=== PATIENT | female | born 1995 | race Two or more races ===

== ENCOUNTER 2016-09-04 14:47 | Emergency (ER) | payer MEDICAID, OTHER ==
[~2016-09-04] VITALS: Ht 160 cm; Wt 57.2 kg
[2016-09-04 15:51] LABS: Basophils # (auto) 0 uL; Basophils % (auto) 0.5 % (0.0-2.0); Eosinophils # (auto) 0.1 uL; Eosinophils % (auto) 1.2 % (0.0-7.0); Hematocrit 36.4 % (36.0-46.0); Hemoglobin 11.8 g/dL (12.2-16.2); Lymphocytes # (auto) 1.4 uL; Mean Corpuscular Hemoglobin 28.2 pg (28.0-32.0); Mean Corpuscular Hgb Conc. 32.4 g/dL (32.0-36.0); Mean Corpuscular Volume 87.1 fL (80.0-100.0); Mean Platelet Volume 7.9 fL (7.4-10.4); Monocytes # (auto) 0.4 uL; Monocytes % (auto) 4.1 % (0.0-12.0); Neutrophils # (auto) 7.1 uL; Neutrophils % (auto) 78.2 % (37.0-80.0); Platelet Count (auto) 313 10^3/uL (140-450); Red Cell Distribution Width 13.5 % (11.6-16.0)
[2016-09-04 15:54] LABS: BUN/Creatinine Ratio 14.9; Bilirubin, Total 0.2 mg/dL (0.2-1.0); Calcium 8.5 mg/dL (8.5-10.1); Potassium 3.7 mmol/L (3.5-5.1)
[2016-09-04 16:54] VITALS: BP 101/66
== END 2016-09-04 20:50 | disposition home or self-care (01) ==
LOC: ER 14:52
DX: O20.0 Threatened abortion (principal); Z3A.17 17 weeks gestation of pregnancy
CPT/HCPCS: 36415; 76801; 80053; 84702; 85025

== ENCOUNTER 2016-09-07 17:43 | Emergency (ER) | payer SELFPAY ==
[~2016-09-07] VITALS: Ht 157.5 cm; Wt 57.2 kg
[2016-09-07 18:28] LABS: Basophils # (auto) 0 uL; Basophils % (auto) 0.3 % (0.0-2.0); Eosinophils # (auto) 0.2 uL; Eosinophils % (auto) 2.7 % (0.0-7.0); Hematocrit 34.5 % (36.0-46.0); Hemoglobin 11.1 g/dL (12.2-16.2); Lymphocytes % (auto) 22.4 % (10.0-50.0); Mean Corpuscular Hemoglobin 28.1 pg (28.0-32.0); Mean Corpuscular Hgb Conc. 32.2 g/dL (32.0-36.0); Mean Corpuscular Volume 87.4 fL (80.0-100.0); Mean Platelet Volume 7.7 fL (7.4-10.4); Monocytes # (auto) 0.5 uL; Monocytes % (auto) 5.9 % (0.0-12.0); Neutrophils % (auto) 68.7 % (37.0-80.0); Platelet Count (auto) 306 10^3/uL (140-450); Red Cell Distribution Width 13.6 % (11.6-16.0); White Blood Cell 8.8 10^3/uL (4.4-10.8)
[2016-09-07 18:49] LABS: BUN/Creatinine Ratio 11.5; Calcium 8.6 mg/dL (8.5-10.1); Potassium 3.8 mmol/L (3.5-5.1)
[2016-09-07 20:53] VITALS: BP 107/70
== END 2016-09-07 21:12 | disposition home or self-care (01) ==
LOC: EDBD 17:43 → ER 17:48
DX: R55 Syncope and collapse (principal); O26.892 Other specified pregnancy related conditions, second trimester; Z3A.18 18 weeks gestation of pregnancy
CPT/HCPCS: 36415; 76805; 80048; 84702; 85025

== ENCOUNTER 2017-01-02 14:00 | Observation (INO) | payer MEDICAID ==
[2017-01-02] MEDS ORDERED: PREN-153 OR (14:48)
[2017-01-02 15:38] LABS: Basophils # (auto) 0 uL; Basophils % (auto) 0.3 % (0.0-2.0); Eosinophils # (auto) 0.5 uL; Eosinophils % (auto) 4.4 % (0.0-7.0); Hematocrit 32.4 % (36.0-46.0); Hemoglobin 10.9 g/dL (12.2-16.2); Lymphocytes # (auto) 1.6 uL; Lymphocytes % (auto) 14.9 % (10.0-50.0); Mean Corpuscular Hemoglobin 28.6 pg (28.0-32.0); Mean Corpuscular Hgb Conc. 33.5 g/dL (32.0-36.0); Mean Corpuscular Volume 85.3 fL (80.0-100.0); Mean Platelet Volume 8.2 fL (7.4-10.4); Monocytes # (auto) 0.6 uL; Monocytes % (auto) 5.8 % (0.0-12.0); Neutrophils % (auto) 74.6 % (37.0-80.0); Platelet Count (auto) 273 10^3/uL (140-450); White Blood Cell 10.7 10^3/uL (4.4-10.8)
[2017-01-02 16:20] LABS: Albumin 2.4 g/dL (3.4-5.0); BUN/Creatinine Ratio 11.4; Bilirubin, Total 0.3 mg/dL (0.2-1.0); Calcium 8.1 mg/dL (8.5-10.1); Potassium 3.3 mmol/L (3.5-5.1); Total Protein 5.9 g/dL (6.4-8.2); Uric Acid 2.7 mg/dL (2.6-6.0)
== END 2017-01-02 15:35 | disposition home or self-care (01) | DRG 566 ==
LOC: LDRP 14:00
PROVIDERS: ADMIT Specialist; ATTEND Specialist
DX: O26.613 Liver and biliary tract disorders in pregnancy, third trimester (principal); K83.1 Obstruction of bile duct; Z3A.34 34 weeks gestation of pregnancy
CPT/HCPCS: 36415; 59025; 76818; 80053; 81002; 84550; 85025; 86592; G0378

== ENCOUNTER 2017-01-06 19:05 | Observation (INO) | payer MEDICAID ==
[~2017-01-06 19:05] MED LIST: PREN-153 OR
== END 2017-01-06 20:52 | disposition home or self-care (01) | DRG 566 ==
LOC: LDRP 19:05
PROVIDERS: ADMIT Specialist; ATTEND Specialist
DX: O26.893 Other specified pregnancy related conditions, third trimester (principal); Z3A.34 34 weeks gestation of pregnancy
CPT/HCPCS: 59025; 76818; 81002; G0378

== ENCOUNTER 2017-01-09 19:17 | Observation (INO) | payer MEDICAID | END 2017-01-09 20:35 | disposition home or self-care (01) | DRG 955 | LOC: LDRP 19:17 | PROVIDERS: ADMIT Obstetrics & Gynecology; ATTEND Obstetrics & Gynecology | DX: O26.899 Other specified pregnancy related conditions, unspecified trimester (principal); Z3A.00 Weeks of gestation of pregnancy not specified | CPT/HCPCS: 59025; 76818; 81002; G0378 ==

== ENCOUNTER 2017-02-08 12:50 | Observation (INO) | payer MEDICAID | END 2017-02-08 16:05 | disposition home or self-care (01) | DRG 566 | LOC: LDRP 12:50 | PROVIDERS: ADMIT Specialist; ATTEND Specialist | DX: O62.9 Abnormality of forces of labor, unspecified (principal); Z3A.39 39 weeks gestation of pregnancy | CPT/HCPCS: 59025; 81002; G0378 ==

== ENCOUNTER 2017-02-08 19:15 | Inpatient (IN) | payer MEDICAID ==
[~2017-02-08] VITALS: Ht 157.5 cm; Wt 72.6 kg
[2017-02-08] MEDS ORDERED: NALBUPHINE HCL 10 MG/1ml INJECTION IV PRN (22:00)
[2017-02-08] MEDS ORDERED: LIDOCAINE 2%HCL (LOCAL ANESTH.) INJ 20ML MDV IJ ONE (22:00)
[2017-02-08] MEDS ORDERED: WITCH HAZEL-GLYCERIN PAD TOP PRN (22:00)
[2017-02-08] MEDS ORDERED: PHISODERM TOP SOLN 240ML BTL TOP PRN (22:00)
[2017-02-08] MEDS ORDERED: DERMOPLAST 60ML BOTTLE TOP PRN (22:00)
[2017-02-08 22:42] LABS: Basophils # (auto) 0 uL; Basophils % (auto) 0.3 % (0.0-2.0); CONDITION Y; Eosinophils # (auto) 0.1 uL; Eosinophils % (auto) 1.2 % (0.0-7.0); Hematocrit 34.4 % (36.0-46.0); Hemoglobin 11.4 g/dL (12.2-16.2); Lymphocytes # (auto) 1.8 uL; Lymphocytes % (auto) 16.6 % (10.0-50.0); Mean Corpuscular Hemoglobin 28.5 pg (28.0-32.0); Mean Corpuscular Hgb Conc. 33.1 g/dL (32.0-36.0); Mean Corpuscular Volume 86.1 fL (80.0-100.0); Mean Platelet Volume 8.3 fL (7.4-10.4); Monocytes # (auto) 0.8 uL; Monocytes % (auto) 7.2 % (0.0-12.0); Neutrophils # (auto) 8.3 uL; Neutrophils % (auto) 74.7 % (37.0-80.0); Platelet Count (auto) 277 10^3/uL (140-450); White Blood Cell 11.1 10^3/uL (4.4-10.8)
[2017-02-08 22:47] LABS: Urine Bilirubin Negative (Negative); Urine Blood Negative /uL (Negative); Urine Color Yellow (Yellow); Urine Glucose Normal (Normal); Urine Ketone Negative (Negative); Urine Nitrite Negative (Negative); Urine RBC <1 /hpf (0 - 4); Urine Squamous Epithelial Cell FEW /hpf (<5); Urine Urobilinogen Normal (Negative); Urine pH 6.5 (5.0-8.0)
[2017-02-08 22:55] LABS: INR 0.88 (0.9-1.15); Partial Thromboplastin Time 26.7 sec (22.64-33.71); Prothrombin Time 9.6 sec (9.37-12.3)
[2017-02-08 23:03] LABS: Albumin 2.4 g/dL (3.4-5.0); BUN/Creatinine Ratio 21.3; Calcium 7.9 mg/dL (8.5-10.1); Potassium 3.6 mmol/L (3.5-5.1)
[2017-02-08 23:06] LABS: Bilirubin, Total 0.2 mg/dL (0.2-1.0); Total Protein 6.3 g/dL (6.4-8.2)
[2017-02-08] MEDS ORDERED: NALOXONE HCL 0.4 MG/ML VIAL IV ONE (23:30)
[2017-02-08] MEDS ORDERED: fentaNYL W ROPIVACAINE 150 ML EPI SCH (23:30)
[2017-02-08] MEDS ORDERED: ePHEDrine SULFATE 50 MG/ML AMP IV ONE (23:30)
[2017-02-08] MEDS ORDERED: LIDOCAINE HCL 2 %PF INJ 10ML AMP IJ ONE (23:30)
[2017-02-08] MEDS ORDERED: fentaNYL CITRATE 100 MCG/2 ML VL IV ONE (23:30)
[2017-02-09] MEDS ORDERED: fentaNYL CITRATE 100 MCG/2 ML VL IV ONE (00:30)
[2017-02-09] MEDS ORDERED: ePHEDrine SULFATE 50 MG/ML AMP IV ONE (00:30)
[2017-02-09] MEDS ORDERED: fentaNYL W ROPIVACAINE 150 ML EPI SCH (00:30)
[2017-02-09] MEDS ORDERED: NALOXONE HCL 0.4 MG/ML VIAL IV ONE (00:30)
[2017-02-09] MEDS ORDERED: LACTATED RINGER'S 1,000 ML IV SCH (00:33)
[2017-02-09] MEDS ORDERED: LACT. RINGERS/OXYTOCIN 20UNITS 1,000 ML IV SCH ×2 (00:33→04:03)
[2017-02-09] MEDS ORDERED: TERBUTALINE SULFATE 1 MG/ML 1ML VIAL SC ONE (04:15)
[2017-02-09] MEDS ORDERED: IBUPROFEN 600 MG TAB PO PRN (10:00)
[2017-02-09 12:05] VITALS: BP 104/58
[2017-02-09] MEDS: DOCUSATE CALCIUM 240 MG CAP PO SCH (14:00)
[2017-02-09 16:00] VITALS: BP 105/65
[2017-02-09] MEDS: IBUPROFEN 600 MG TAB PO PRN ×2 (17:12→23:29)
[2017-02-09 19:37] VITALS: BP 104/59
[2017-02-09 23:19] VITALS: BP 109/62
[2017-02-10 03:25] VITALS: BP 102/59
[2017-02-10] MEDS: IBUPROFEN 600 MG TAB PO PRN ×2 (03:32→16:08)
[2017-02-10 06:45] LABS: Basophils # (auto) 0 uL; Basophils % (auto) 0.3 % (0.0-2.0); CONDITION Y; DEFINITIVE SEE PRINTOUT; Eosinophils # (auto) 0.3 uL; Eosinophils % (auto) 2.1 % (0.0-7.0); Hematocrit 24.6 % (36.0-46.0); Hemoglobin 8.3 g/dL (12.2-16.2); Lymphocytes # (auto) 2.8 uL; Mean Corpuscular Hemoglobin 29.5 pg (28.0-32.0); Mean Corpuscular Hgb Conc. 33.7 g/dL (32.0-36.0); Mean Corpuscular Volume 87.6 fL (80.0-100.0); Mean Platelet Volume 8.5 fL (7.4-10.4); Monocytes # (auto) 0.8 uL; Neutrophils # (auto) 9.5 uL; Neutrophils % (auto) 70.6 % (37.0-80.0); Platelet Count (auto) 213 10^3/uL (140-450); Red Cell Distribution Width 15.2 % (11.6-16.0); White Blood Cell 13.4 10^3/uL (4.4-10.8)
[2017-02-10 07:31] VITALS: BP 109/57
[2017-02-10] MEDS: DOCUSATE CALCIUM 240 MG CAP PO SCH (10:07)
[2017-02-10 11:30] VITALS: BP 112/62
[2017-02-10 16:27] VITALS: BP 110/62
== END 2017-02-10 17:05 | disposition home or self-care (01) | DRG 560 ==
LOC: LDRP 19:15 → OBSVTOIN 20:00 → LDRP 22:09
PROVIDERS: ADMIT Specialist; ATTEND Specialist
PROC: 10E0XZZ Delivery of Products of Conception, External Approach (ICD-10-PCS; principal; 2017-02-09)
PROC: 3E0R3CZ (ICD-10-PCS; 2017-02-09)
PROC: 00HU33Z Insertion of Infusion Device into Spinal Canal, Percutaneous Approach (ICD-10-PCS; 2017-02-09)
DX: O80 Encounter for full-term uncomplicated delivery (principal); Z37.0 Single live birth; Z3A.39 39 weeks gestation of pregnancy
CPT/HCPCS: 36415; 51702; 59025; 59409; 62282; 80053; 81001; 81002; 85025; 85610; 85730; 86850; 86900; 86901; 88307; 94762; 96361; 96365; 96366; G0378; J2590; J3010

== ENCOUNTER 2017-03-17 18:28 | Emergency (ER) | payer MEDICAID ==
[~2017-03-17] VITALS: Ht 157.5 cm; Wt 68.0 kg
[2017-03-17 18:35] VITALS: BP 100/60
== END 2017-03-17 21:47 | disposition left against medical advice (07) ==
LOC: EDUNIT# 18:40 → ER 18:40
DX: L02.414 Cutaneous abscess of left upper limb (principal); Z53.21 Procedure and treatment not carried out due to patient leaving prior to being seen by health care provider

== ENCOUNTER 2017-10-17 03:20 | Emergency (ER) | payer MEDICAID ==
[~2017-10-17] VITALS: Ht 167.6 cm; Wt 68.0 kg
[2017-10-17 03:28] VITALS: BP 108/65
[2017-10-17 04:11] LABS: Basophils # (auto) 0.1 uL; Basophils % (auto) 0.7 % (0.0-2.0); Eosinophils # (auto) 0.2 uL; Eosinophils % (auto) 1.5 % (0.0-7.0); Hematocrit 39.2 % (36.0-46.0); Hemoglobin 12.5 g/dL (12.2-16.2); Lymphocytes # (auto) 2.4 uL; Lymphocytes % (auto) 22.2 % (10.0-50.0); Mean Corpuscular Hemoglobin 27.7 pg (28.0-32.0); Mean Corpuscular Hgb Conc. 31.9 g/dL (32.0-36.0); Mean Corpuscular Volume 86.7 fL (80.0-100.0); Monocytes # (auto) 0.5 uL; Monocytes % (auto) 4.3 % (0.0-12.0); Neutrophils # (auto) 7.6 uL; Neutrophils % (auto) 71.3 % (37.0-80.0); Platelet Count (auto) 315 10^3/uL (140-450); Red Blood Cells 4.52 10^6/uL (4.0-5.20); Red Cell Distribution Width 14.1 % (11.8-14.3); White Blood Cell 10.7 10^3/uL (4.4-10.8)
[2017-10-17 04:26] LABS: Albumin 3.5 g/dL (3.4-5.0); BUN/Creatinine Ratio 9.5; Calcium 7.8 mg/dL (8.5-10.1); Potassium 3.3 mmol/L (3.5-5.1)
[2017-10-17 04:28] LABS: Acetaminophen < 2.0 ug/mL (10-30); Salicylate < 1.7 mg/dL (2.8-20.0)
[2017-10-17 04:29] LABS: Bilirubin, Total 0.1 mg/dL (0.2-1.0); Total Protein 7.2 g/dL (6.4-8.2)
== END 2017-10-17 05:18 | disposition left against medical advice (07) ==
LOC: EDBD 03:20 → ER 03:20 → EDUNIT# 03:20 → ER 05:18
DX: F10.10 Alcohol abuse, uncomplicated (principal); Z53.21 Procedure and treatment not carried out due to patient leaving prior to being seen by health care provider
CPT/HCPCS: 36415; 80053; 80320; 80329; 85025

== ENCOUNTER 2019-05-26 18:44 | Emergency (ER) | payer MEDICAID ==
[~2019-05-26] VITALS: Ht 157.5 cm; Wt 63.5 kg
[2019-05-26 19:22] LABS: Urine Amorphous Crystal FEW /hpf (None Seen); Urine Bacteria NONE SEEN /hpf (None Seen); Urine Blood Negative /uL (Negative); Urine Mucus FEW (None Seen); Urine Specific Gravity 1.019 (1.001-1.035); Urine WBC 2 /hpf (0 - 5)
[2019-05-26 19:22] LABS: Basophils # (auto) 0.1 uL; Basophils % (auto) 1.1 % (0.0-2.0); Eosinophils # (auto) 0.6 uL; Hematocrit 38.3 % (36.0-46.0); Hemoglobin 13.2 g/dL (12.2-16.2); Lymphocytes # (auto) 3.2 uL; Lymphocytes % (auto) 34.2 % (10.0-50.0); Mean Corpuscular Hemoglobin 29.8 pg (28.0-32.0); Mean Corpuscular Hgb Conc. 34.4 g/dL (32.0-36.0); Mean Corpuscular Volume 86.4 fL (80.0-100.0); Monocytes # (auto) 0.6 uL; Monocytes % (auto) 6.4 % (0.0-12.0); Neutrophils # (auto) 4.9 uL; Neutrophils % (auto) 52.3 % (37.0-80.0); Nucleated Red Blood Cells % 0.2 %; Platelet Count (auto) 363 10^3/uL (140-450); Red Blood Cells 4.43 10^6/uL (4.0-5.20); Red Cell Distribution Width 12.4 % (11.8-14.3); White Blood Cell 9.3 10^3/uL (4.4-10.8)
[2019-05-26 19:25] LABS: BUN/Creatinine Ratio 16.5; Calcium 8.6 mg/dL (8.5-10.1); Potassium 3.3 mmol/L (3.5-5.1)
[2019-05-26 19:34] LABS: Bilirubin, Total 0.1 mg/dL (0.2-1.0); Total Protein 7.7 g/dL (6.4-8.2)
[2019-05-26 19:36] LABS: Alcohol, Urine < 3.0 mg/dL (0-5); Amphetamine Screen, Urine NEGATIVE (NEGATIVE); Barbiturate Scree,Urine NEGATIVE (NEGATIVE); Benzodiazephine Screen, Urine NEGATIVE (NEGATIVE); Cannabinoid Screen, Urine POSITIVE (NEGATIVE); Cocaine Screen, Urine NEGATIVE (NEGATIVE); Phencyclidine Screen, Urine NEGATIVE (NEGATIVE)
[2019-05-26 19:44] LABS: Opiate Scree,Urine NEGATIVE (NEGATIVE)
[2019-05-26 22:06] VITALS: BP 122/78
[2019-05-26] MEDS ORDERED: POTASSIUM CHL 20 Meq TABLET PO ONE (22:15)
[2019-05-26] MEDS ORDERED: ACETAMINOPHEN/CODEINE#3 (300/30mg) TAB PO ONE (22:15)
[2019-05-26] MEDS ORDERED: DexAMETHasone SOD PHOS 10MG/1ML VIAL INJ IM ONE (22:15)
[2019-05-26] MEDS ORDERED: ONDANSETRON ODT 4 MG TAB PO ONE (23:15)
== END 2019-05-26 23:03 | disposition home or self-care (01) ==
LOC: ER 18:47
DX: R42 Dizziness and giddiness (principal); H65.93 Unspecified nonsuppurative otitis media, bilateral
CPT/HCPCS: 36415; 70450; 80053; 80307; 81001; 81025; 85025; 96372; 99284; J1100; Q0162

== ENCOUNTER 2020-12-28 14:00 | Observation (INO) | payer MEDICAID ==
[~2020-12-28 14:00] MED LIST changes: -PREN-153 OR; +PREN1TAB71 OR
== END 2020-12-28 17:05 | disposition home or self-care (01) ==
LOC: LDRP 14:00
PROVIDERS: ADMIT Obstetrics & Gynecology; ATTEND Obstetrics & Gynecology
DX: O26.892 Other specified pregnancy related conditions, second trimester (principal); R10.30 Lower abdominal pain, unspecified; Z3A.22 22 weeks gestation of pregnancy
CPT/HCPCS: 59025; 81002; G0378

== ENCOUNTER → 2021-02-19 | Outpatient (CLI) | payer MEDICAID ==
[2021-02-19 07:45] LABS: Basophils # (auto) 0.1 10 ^3/uL (0-0.2); Basophils % (auto) 0.6 % (0.0-2.0); Eosinophils # (auto) 0.2 10 ^3/uL (0-0.8); Eosinophils % (auto) 1.9 % (0.0-7.0); Hematocrit 33.9 % (36.0-46.0); Hemoglobin 11.8 g/dL (12.2-16.2); Lymphocytes # (auto) 2.3 10 ^3/uL (0.4-5.4); Lymphocytes % (auto) 22.6 % (10.0-50.0); Mean Corpuscular Hemoglobin 30.1 pg (28.0-32.0); Mean Corpuscular Hgb Conc. 34.9 g/dL (32.0-36.0); Mean Corpuscular Volume 86.4 fL (80.0-100.0); Monocytes # (auto) 0.7 10 ^3/uL (0-1.3); Monocytes % (auto) 6.6 % (0.0-12.0); Neutrophils # (auto) 7.1 10 ^3/uL (1.6-8.6); Neutrophils % (auto) 68.3 % (37.0-80.0); Nucleated Red Blood Cells % 0.1 %; Red Blood Cells 3.92 10^6/uL (4.0-5.20); Red Cell Distribution Width 13.2 % (11.8-14.3); White Blood Cell 10.4 10^3/uL (4.4-10.8)
== END | disposition home or self-care (01) ==
LOC: LAB 07:26
PROVIDERS: ATTEND Obstetrics & Gynecology
DX: O99.810 Abnormal glucose complicating pregnancy (principal); Z3A.29 29 weeks gestation of pregnancy
CPT/HCPCS: 36415; 82951; 85025

== ENCOUNTER 2021-03-16 17:55 | Emergency (ER) | payer MEDICAID ==
[~2021-03-16] VITALS: Ht 157.5 cm; Wt 64.0 kg
[2021-03-16 21:58] VITALS: BP 110/70
== END 2021-03-16 22:08 | disposition home or self-care (01) ==
LOC: ER 17:55
DX: O26.893 Other specified pregnancy related conditions, third trimester (principal); S93.602A Unspecified sprain of left foot, initial encounter; Z79.899 Other long term (current) drug therapy; Z3A.33 33 weeks gestation of pregnancy
CPT/HCPCS: 73610

== ENCOUNTER → 2021-04-16 | Outpatient (CLI) | payer MEDICAID ==
[2021-04-16 14:03] LABS: Basophils # (auto) 0.1 10 ^3/uL (0-0.2); Basophils % (auto) 0.7 % (0.0-2.0); Eosinophils # (auto) 0.1 10 ^3/uL (0-0.8); Eosinophils % (auto) 1.2 % (0.0-7.0); Hematocrit 37.3 % (36.0-46.0); Hemoglobin 12.3 g/dL (12.2-16.2); Lymphocytes # (auto) 1.6 10 ^3/uL (0.4-5.4); Lymphocytes % (auto) 16.6 % (10.0-50.0); Mean Corpuscular Hemoglobin 28.4 pg (28.0-32.0); Mean Corpuscular Hgb Conc. 33.1 g/dL (32.0-36.0); Mean Corpuscular Volume 85.8 fL (80.0-100.0); Monocytes # (auto) 0.6 10 ^3/uL (0-1.3); Monocytes % (auto) 6.9 % (0.0-12.0); Neutrophils % (auto) 74.6 % (37.0-80.0); Red Blood Cells 4.34 10^6/uL (4.0-5.20); Red Cell Distribution Width 14.7 % (11.8-14.3); White Blood Cell 9.4 10^3/uL (4.4-10.8)
[2021-04-17 06:06] LABS: RPR Non Reactive (Non Reactive)
== END | disposition home or self-care (01) ==
LOC: LAB 13:51
PROVIDERS: ATTEND Obstetrics & Gynecology
DX: Z34.83 Encounter for supervision of other normal pregnancy, third trimester (principal); Z3A.37 37 weeks gestation of pregnancy
CPT/HCPCS: 36415; 84112; 85025; 86592

== ENCOUNTER 2021-04-30 10:56 | Observation (INO) | payer MEDICAID | END 2021-04-30 12:18 | disposition home or self-care (01) | LOC: LDRP 10:56 | PROVIDERS: ADMIT Obstetrics & Gynecology; ATTEND Obstetrics & Gynecology | DX: O62.9 Abnormality of forces of labor, unspecified (principal); O99.891 Other specified diseases and conditions complicating pregnancy; M54.9 Dorsalgia, unspecified; Z3A.39 39 weeks gestation of pregnancy | CPT/HCPCS: 59025; 81002; 94760; G0378; G0379 ==

== ENCOUNTER 2021-05-03 08:30 | Inpatient (IN) | payer MEDICAID ==
[~2021-05-03] VITALS: Ht 157.5 cm; Wt 81.6 kg
[2021-05-03] MEDS ORDERED: LIDOCAINE 2%HCL (LOCAL ANESTH.) INJ 20ML MDV IJ PRN (08:45)
[2021-05-03] MEDS ORDERED: PROMETHAZINE HCL 25 MG/ML 1ML IV PRN (08:45)
[2021-05-03] MEDS ORDERED: PHISODERM TOP SOLN 240ML BTL TOP PRN (08:45)
[2021-05-03] MEDS ORDERED: BUTORPHANOL TARTRATE 2 MG/1 ML VIAL IV PRN ×2 (08:45)
[2021-05-03 09:12] LABS: Hematocrit 36.2 % (36.0-46.0); Mean Corpuscular Hemoglobin 28.5 pg (28.0-32.0); Mean Corpuscular Hgb Conc. 33.1 g/dL (32.0-36.0); Mean Corpuscular Volume 86.2 fL (80.0-100.0); Red Cell Distribution Width 15.4 % (11.8-14.3); White Blood Cell 11.1 10^3/uL (4.4-10.8)
[2021-05-03 09:14] LABS: Basophils % (manual) 0 (0.0-2.0); Blast Cells 0; Metamyelocytes % 0; Promyelocytes % 0; Reactive Lymphocytes 0
[2021-05-03 09:19] LABS: INR 0.94 (0.9-1.15); Partial Thromboplastin Time 27.1 sec (23.6-33.0)
[2021-05-03 09:22] LABS: Albumin 2.2 g/dL (3.4-5.0); BUN/Creatinine Ratio 12.3; Calcium 8.4 mg/dL (8.5-10.1); Potassium 3.7 mmol/L (3.5-5.1)
[2021-05-03 09:24] LABS: Bilirubin, Total 0.1 mg/dL (0.2-1.0); Total Protein 6.6 g/dL (6.4-8.2)
[2021-05-03 09:33] LABS: Urine Bacteria NONE SEEN /hpf (None Seen); Urine Blood Negative /uL (Negative); Urine Specific Gravity 1.019 (1.001-1.035); Urine WBC 1 /hpf (0 - 5)
[2021-05-03 09:46] LABS: Alcohol, Urine < 3.0 mg/dL (0-10); Amphetamine Screen, Urine NEGATIVE (NEGATIVE); Barbiturate Scree,Urine NEGATIVE (NEGATIVE); Benzodiazephine Screen, Urine NEGATIVE (NEGATIVE); Cannabinoid Screen, Urine POSITIVE (NEGATIVE); Cocaine Screen, Urine NEGATIVE (NEGATIVE)
[2021-05-03 09:52] LABS: Opiate Scree,Urine NEGATIVE (NEGATIVE); Phencyclidine Screen, Urine NEGATIVE (NEGATIVE)
[2021-05-03] MEDS: LACTATED RINGER'S 1,000 ML IV SCH ×2 (09:54→13:42)
[2021-05-03] MEDS: miSOPROStol 50 MCG per PRE-CUT 1/2 TAB PO PRN ×3 (10:00→19:18)
[2021-05-03 10:18] LABS: Band Neutrophils % (manual) 8; Eosinophils % (manual) 2 (0-7); Lymphocytes % (manual) 25 (10.0-50.0); Monocytes % (manual) 4 (0-12); Myelocytes % 1
[2021-05-03] MEDS ORDERED: LACT. RINGERS/OXYTOCIN 20UNITS 500 ML IV PRN ×2 (15:00)
[2021-05-03] MEDS ORDERED: ROPIVACAINE HCL 200 ML EPI SCH ×2 (19:45→20:45)
[2021-05-03] MEDS ORDERED: LACTATED RINGER'S 1,000 ML IV ONE (19:45)
[2021-05-03] MEDS ORDERED: ePHEDrine SULFATE 50 MG/ML AMP IV ONE (19:45)
[2021-05-03] MEDS ORDERED: fentaNYL CITRATE 100 MCG/2 ML VL IV ONE (19:45)
[2021-05-03] MEDS ORDERED: NALOXONE HCL 0.4 MG/ML VIAL IV ONE (19:45)
[2021-05-04] MEDS: WITCH HAZEL-GLYCERIN PAD TOP PRN ×2 (04:58→15:29)
[2021-05-04] MEDS: DERMOPLAST 60ML BOTTLE TOP PRN ×2 (04:58→15:29)
[2021-05-04 05:07] LABS: RPR Non Reactive (Non Reactive)
[2021-05-04] MEDS ORDERED: ONDANSETRON ODT 4 MG TAB PO PRN (06:15)
[2021-05-04] MEDS ORDERED: IBUPROFEN 600 MG TAB PO PRN (06:15)
[2021-05-04] MEDS ORDERED: ACETAMINOPHEN 325 MG TAB PO PRN (06:15)
[2021-05-04 07:00] VITALS: BP 109/67
[2021-05-04] MEDS: IBUPROFEN 800 MG TAB PO PRN ×2 (09:22→15:29)
[2021-05-04 11:00] VITALS: BP 110/59
[2021-05-04 15:00] VITALS: BP 110/59
[2021-05-04 18:45] VITALS: BP 108/68
[2021-05-04 23:10] VITALS: BP 115/78
[2021-05-05 03:02] VITALS: BP 112/71
[2021-05-05 07:31] VITALS: BP 110/69
[2021-05-05 11:20] VITALS: BP 112/76
[2021-05-05] MEDS: IBUPROFEN 800 MG TAB PO PRN ×2 (13:27→23:33)
[2021-05-05 15:23] VITALS: BP 90/51
[2021-05-05 19:00] VITALS: BP 124/85
[2021-05-05 23:00] VITALS: BP 116/69
[2021-05-06 02:59] VITALS: BP 108/73
[2021-05-06 07:00] VITALS: BP 111/63
[2021-05-06 11:00] VITALS: BP 119/65
[2021-05-06 15:00] VITALS: BP 112/68
== END 2021-05-06 16:49 | disposition home or self-care (01) | DRG 560 ==
LOC: LDRP 08:30
PROVIDERS: ADMIT Obstetrics & Gynecology; ATTEND Obstetrics & Gynecology
PROC: 3E0P7VZ Introduction of Hormone into Female Reproductive, Via Natural or Artificial Opening (ICD-10-PCS; 2021-05-03)
PROC: 3E0DXGC Introduction of Other Therapeutic Substance into Mouth and Pharynx, External Approach (ICD-10-PCS; 2021-05-03)
PROC: 10E0XZZ Delivery of Products of Conception, External Approach (ICD-10-PCS; principal; 2021-05-04)
PROC: 3E0R3BZ Introduction of Anesthetic Agent into Spinal Canal, Percutaneous Approach (ICD-10-PCS; 2021-05-04)
PROC: 00HU33Z Insertion of Infusion Device into Spinal Canal, Percutaneous Approach (ICD-10-PCS; 2021-05-04)
DX: O80 Encounter for full-term uncomplicated delivery (principal); Z37.0 Single live birth; Z20.822 Contact with and (suspected) exposure to COVID-19; Z3A.40 40 weeks gestation of pregnancy
CPT/HCPCS: 36415; 59025; 59409; 62282; 80053; 80307; 81001; 81002; 85007; 85027; 85610; 85730; 86592; 86850; 86900; 86901; 87426; 94760; 96360; 96361; 96365; 96366; A4618; G0378; J2590

== ENCOUNTER → 2024-07-15 | Outpatient (CLI) | payer MEDICAID | END | disposition home or self-care (01) | LOC: LAB 09:54 | PROVIDERS: ATTEND Obstetrics & Gynecology | DX: Z34.80 Encounter for supervision of other normal pregnancy, unspecified trimester (principal); Z72.51 High risk heterosexual behavior; Z3A.00 Weeks of gestation of pregnancy not specified | CPT/HCPCS: 86703; 86850; 86900; 86901 ==

== ENCOUNTER 2024-09-05 21:05 | Emergency (ER) | payer MEDICAID ==
[~2024-09-05] VITALS: Ht 157.5 cm; Wt 79.7 kg
[2024-09-05 22:00] LABS: Basophils # (auto) 0 10 ^3/uL (0-0.2); Basophils % (auto) 0.4 % (0.0-2.0); Eosinophils # (auto) 0.3 10 ^3/uL (0-0.8); Eosinophils % (auto) 3.2 % (0.0-7.0); Hematocrit 36.9 % (36.0-46.0); Hemoglobin 12.2 g/dL (12.2-16.2); Lymphocytes # (auto) 1.9 10 ^3/uL (0.4-5.4); Mean Corpuscular Hemoglobin 28.8 pg (28.0-32.0); Mean Corpuscular Hgb Conc. 33.2 g/dL (32.0-36.0); Mean Corpuscular Volume 86.9 fL (80.0-100.0); Monocytes # (auto) 0.5 10 ^3/uL (0-1.3); Monocytes % (auto) 4.5 % (0.0-12.0); Neutrophils # (auto) 7.5 10 ^3/uL (1.6-8.6); Neutrophils % (auto) 72.9 % (37.0-80.0); Platelet Count (auto) 308 10^3/uL (140-450); Red Blood Cells 4.25 10^6/uL (4.0-5.20); Red Cell Distribution Width 13.3 % (11.8-14.3); White Blood Cell 10.3 10^3/uL (4.4-10.8)
--- NOTE | 2024-09-05 22:02 | ED.PDOC ---
HPI (NEURO) HPI Comments 29 y.o female presents to the ED for a chief complaint of dizziness that started around 1300 today. Patient reports no alleviating or aggravating factors. Patient is currently 23 weeks gestation with no symptoms of vaginal bleeding, discharge, abdominal pain, cramping, fever, chills, or back pain. Patient reports all OB appointments have been normal. No medical history or allergies reported. Chief Complaint: Dizziness Time Seen by MD: 21:55 Primary Care Provider: UNKNOWN Reviewed Notes: Nurses Notes, Medications, Allergies Information Source: Patient Mode of Arrival: Ambulatory Timing: Hours Duration: Since onset Onset: At rest Circumstances: Spontaneous History of: None Modifying factors: Nothing Associated Signs and Symptoms: None Past Medical History PAST MEDICAL HISTORY: Denies Surgical History: Denies all surgeries PARLIAMENTARY COUNSEL History: No Pertinent PARLIAMENTARY COUNSEL History Family History Family History: Unobtainable Social History Smoker: Non-Smoker Alcohol: Denies ETOH Use Drugs: Denies Drug Use Lives In: Home Constitutional: denies: chills, diaphoresis, fatigue, fever, malaise, sweats, weakness, others EENTM: denies: blurred vision, double vision, ear bleeding, ear discharge, ear drainage, ear pain, ear ringing, eye pain, eye redness, hearing loss, mouth pain, mouth swelling, nasal discharge, nose bleeding, nose congestion, nose fredis n, photophobia, tearing, throat pain, throat swelling, voice changes, others Respiratory: denies: cough, hemoptysis, orthopnea, SOB at rest, shortness of breath, SOB with excertion, stridor, wheezing, others Cardiovascular: denies: chest pain, dizzy spells, diaphoresis, Dyspnea on exertion, edema, irregular heart beat, left arm pain, lightheadedness, palpitations, PND, syncope, others Gastrointestinal: denies: abdomen distended, abdominal pain, blood streaked bowels, constipated, diarrhea, dysphagia, difficulty swallowing, hematemesis, melena, nausea, poor appetite, poor fluid intake, rectal bleeding, rectal pain, vomiting, others Genitourinary: reports: ; denies: abnormal vagina bleeding, burning, dyspareunia, dysuria, flank pain, frequency, hematuria, incontinence, pain, vagina discharge, urgency, others Neurological: reports: dizziness; denies: fainting, headache, left sided numbness, left sided weakness, numbness, paresthesia, pre-existing deficit, right sided numbness, right sided weakness, seizure, speech problems, tingling, tremors, weakness, others Musculoskeletal: denies: back pain, gout, joint pain, joint swelling, muscle pain, muscle stiffness, neck pain, others Integumetry: denies: bruises, change in color, change in hair/nails, dryness, laceration, lesions, lumps, rash, wounds, others Allergic/Immunocompromised: denies: Difficulty Healing, Frequent Infections, Hives, Itching, others Hematologic/Lymphatic: denies: anemia, blood clots, easy bleeding, easy bruising, swollen glands, others Endocrine: denies: excessive hunger, excessive sweating, excessive thirst, excessive urination, flushing, intolerance to cold, intolerance to heat, unexplained weight gain, unexplained weight loss, others Psychiatric: denies: anxiety, bipolar disorder, depression, hopeless, panic disorder, schizophrenia, sleepless, suicidal, others All Other Systems: Reviewed and Negative Physical Exam General Appearance: No Apparent Distress, Normal HEENT: Normal ENT Inspection, Pharynx Normal, TMs Normal Neck: Full Range of Motion, Non-Tender, Normal, Normal Inspection Respiratory: Chest Non-Tender, Lungs Clear, No Accessory Muscle Use, No Respiratory Distress, Normal Breath Sounds Cardiovascular: No Edema, No JVD, No Murmur, No Gallop, Normal Peripheral Pulses, Regular Rate/Rhythm Breast Exam: Deferred Gastrointestinal: No Organomegaly, Non Tender, No Pulsatile Mass, Normal Bowel Sounds, Soft Genitalia: Deferred Pelvic: Deferred Rectal: Deferred Extremities: No calf tenderness, Normal capillary refill, Normal inspection, Normal range of motion, Non-tender, No pedal edema Musculoskeletal : Apperance: Normal Neurologic: Alert, vegetables cook II-XII nml as Tested, No Motor Deficits, Normal Affect, Normal Mood, No Sensory Deficits Cerebellar Function: Normal Reflexes: Normal Skin: Dry, Normal Color, Warm Lymphatic: No Adenopathy Was a procedure done? Was a procedure done?: No Differential Diagnosis (SZ) General Weakness: Dehydration, Electrolyte imbalance, Hypoglycemia, Hypotension, Vertigo: central, Vertigo: peripheral, Vestibular neuronitis X-Ray, Labs, Meds, VS Vital Signs Date Time Temp Pulse Resp B/P (MAP) Pulse Ox O2 Delivery O2 Flow Rate FiO2 09/05/24 21:25 98.1 100 16 100/65 (77) 97 Lab Test 09/05/24 21:38 09/05/24 21:34 Range/Units White Blood Count 10.3 4.4-10.8 10^3/uL Red Blood Count 4.25 4.0-5.20 10^6/uL Hemoglobin 12.2 12.2-16.2 g/dL Hematocrit 36.9 36.0-46.0 % Mean Corpuscular Volume 86.9 80.0-100.0 fL Mean Corpuscular Hemoglobin 28.8 28.0-32.0 pg Mean Corpuscular Hemoglobin Concent 33.2 32.0-36.0 g/dL Red Cell Distribution Width 13.3 11.8-14.3 % Platelet Count 308 140-450 10^3/uL Mean Platelet Volume 7.6 6.9-10.8 fL Neutrophils (%) (Auto) 72.9 37.0-80.0 % Lymphocytes (%) (Auto) 19.0 10.0-50.0 % Monocytes (%) (Auto) 4.5 0.0-12.0 % Eosinophils (%) (Auto) 3.2 0.0-7.0 % Basophils (%) (Auto) 0.4 0.0-2.0 % Neutrophils # (Auto) 7.5 1.6-8.6 10 ^3/uL Lymphocytes # (Auto) 1.9 0.4-5.4 10 ^3/uL Monocytes # (Auto) 0.5 0-1.3 10 ^3/uL Eosinophils # (Auto) 0.3 0-0.8 10 ^3/uL Basophils # (Auto) 0 0-0.2 10 ^3/uL Nucleated Red Blood Cells 0.0 % Sodium Level 135 L 136-145 mmol/L Potassium Level 3.2 L 3.5-5.1 mmol/L Chloride Level 103 98-107 mmol/L Carbon Dioxide Level 25 20-31 mmol/L Anion Gap 7 5-15 Blood Urea Nitrogen < 5 L 9-23 mg/dL Creatinine 0.52 L 0.550-1.02 mg/dL Glomerular Filtration Rate Calc 128 >90 mL/min BUN/Creatinine Ratio 9.6 L 10.0-20.0 Serum Glucose 112 H 74-106 mg/dL Calcium Level 9.2 8.7-10.4 mg/dL Total Bilirubin 0.2 0.2-1.0 mg/dL Aspartate Amino Transferase (AST) 20 13-40 U/L Alanine Aminotransferase (ALT) 23 7-40 U/L Alkaline Phosphatase 65 46-116 U/L Total Protein 6.5 5.7-8.2 g/dL Albumin 4.1 3.2-4.8 g/dL Urine Color Straw Yellow Urine Clarity Clear Clear Urine pH 6.5 5.0-9.0 Urine Specific [place] 1.003 1.001-1.035 Urine Protein Negative Negative Urine Ketones Negative Negative Urine Blood Negative Negative /uL Urine Nitrite Negative Negative Urine Bilirubin Negative Negative Urine Urobilinogen Normal Negative mg/dL Urine Leukocyte Esterase Negative Negative /uL Urine RBC <1 0 - 4 /hpf Urine Microscopic WBC 1 0-5 /HPF Urine Squamous Epithelial Cells Few <5 /hpf Urine Bacteria Few H None Seen /hpf Urine Glucose Normal Normal mg/dL X-Ray, Labs, Meds, VS Comment Imaging: X-rays and CT scans were reviewed and interpreted by this provider, imaging shows no fractures and no pathological disease. Pending radiology review. Laboratory: Labs reviewed and interpreted by this provider. Low-potassium, low BUN, low creatinine, Patient has symptoms of dizziness.. No cramping no bleeding in his spotting states she has been drinking adequate loving. Patient may be over hydrating. Patient has prior medical visits reviewed. Med reconciliation performed Vital signs reviewed Time of 1ST Reevaluation: 21:59 Reevaluation 1ST: Unchanged Patient Education/Counseling: Diagnosis, Treatment, Prognosis, Need For Follow Up (Patient advised to follow-up in the emergency room in the next 24 to 48 hours if symptoms do not improve. Advised follow-up with PCP in the next 3 to 5 days. Patient verbalized understanding. ) Family Education/Counseling: No Family Present Departure 1 Departure Time of Disposition: 23:36 Impression: Primary Impression: Qualified Codes: Z3A.23 - 23 weeks gestation of Additional Impression: Dizziness Disposition: HOME / SELF CARE / HOMELESS Condition: Fair e-Prescriptions Meclizine HCl (Meclizine 25) 25 Mg Tab 25 MG PO BID PRN, #30 TAB Prov: DEVIN DAWSON 09/05/24 Discharged With: Self Comments Patient advised she may need to decrease her fluid intake. She may be over hydrating. Critical Care Note Critical Care Time?: No Stability Stability form required: No I personally scribed for DEVIN DAWSON ([facility]) on 09/05/24 at 22:01. Electronically submitted by Amanda Price ([facility]). DEVIN DAWSON Sep 05, 2024 22:01
[2024-09-05 22:08] LABS: Urine Bacteria FEW /hpf (None Seen); Urine Blood Negative /uL (Negative); Urine Clarity Clear (Clear); Urine Protein, UAD Negative (Negative); Urine Specific Gravity 1.003 (1.001-1.035); Urine Squamous Epithelial Cell FEW /hpf (<5); Urine Urobilinogen Normal (Negative); Urine WBC 1 /HPF (0-5); Urine pH 6.5 (5.0-9.0)
[2024-09-05 22:09] LABS: Urine Color STRAW (Yellow)
[2024-09-05 22:32] LABS: Alanine Aminotransferase 23 U/L (7-40); Albumin 4.1 g/dL (3.2-4.8); Alkaline Phosphatase 65 U/L (46-116); Anion Gap 7 (5-15); Aspartate Aminotransferase 20 U/L (13-40); Calcium 9.2 mg/dL (8.7-10.4); Carbon Dioxide 25 mmol/L (20-31); Chloride 103 mmol/L (98-107); Total Protein 6.5 g/dL (5.7-8.2)
[2024-09-05 22:36] LABS: BUN/Creatinine Ratio 9.6 (10.0-20.0); Bilirubin, Total 0.2 mg/dL (0.2-1.0); Blood Urea Nitrogen < 5 mg/dL (9-23); Glucose 112 mg/dL (74-106); Potassium 3.2 mmol/L (3.5-5.1); Sodium 135 mmol/L (136-145)
[2024-09-05] MEDS ORDERED: MECL1TAB42 PO (23:38)
[2024-09-06 00:28] VITALS: BP 105/56; TEMP 98.9
[2024-09-06 00:29] VITALS: PULSE 85; RESP 18; O2SAT 97
== END 2024-09-06 00:41 | disposition home or self-care (01) ==
LOC: ER 21:05
DX: O99.352 Diseases of the nervous system complicating pregnancy, second trimester (principal); R42 Dizziness and giddiness; Z3A.23 23 weeks gestation of pregnancy
CPT/HCPCS: 36415; 80053; 81001; 85025

== ENCOUNTER 2024-10-02 16:16 | Observation (INO) | payer MEDICAID ==
[~2024-10-02 16:16] MED LIST changes: +MECL1TAB42 PO
--- NOTE | 2024-10-02 17:56 | DVH ---
EXAM: US OBSTERICAL LIMITED, US OB TRANS VAGINAL US HISTORY: CERVICAL LENGTH COMPARISON: None TECHNIQUE: Real-time grayscale and color images of the gravid uterus were obtained. FINDINGS: Orientation: Cephalic Placenta: Posterior Deepest vertical pocket: 5 cm Heart Rate: 144 bpm Maternal Cervix: Closed, 5.4 cm in the transvaginal exam IMPRESSION: 1. The cervix is closed measuring 5.4 cm in length. No evidence of previa.
--- NOTE | 2024-10-03 10:25 | DVHDS2 ---
Discharge Summary Date of Admission Oct 02, 2024 at 16:16 Date of Discharge: Oct 02, 2024 Admitting Diagnosis 27 weeks rule out labor Wounds: none Labs/Diagnostic Data: none Brief Hx & Hospital Course: NST reassuring , no ctx's , cx closed Consults/Reason for consult none Operations or Procedures none Condition at Discharge: Good Final Diagnosis/Problems List abd pelvic cramps no labor , dehydration Discharge Disposition: Home Discharge Instruct/Medications Diet: Regular Activity: No Restrictions, As Tolerated Follow Up/Referral: as scheduled Discharge Statement: "Patient was advised to return to the ER or call 911 if any headaches, dizziness, shortness of breath, chest pain, abdominal pain, bleeding, fevers, or worsening of medical condition. Patient was counseled about treatment plan, medications, possible side effects, patientverbalized understanding. All questions were answered to the best of my ability. This discharge took greater then 30 minutes in planning, reviewing documentation, counseling the patient, and discussing with other team members." ASSESSMENT ASSESSMENT Assessment Visit Coding OBGYN Date of Service: Oct 02, 2024 Billing Provider: TA PERDOMO DO STOKER ERECTOR AND SERVICER Common Visit Codes: 54507-[id number] INP/OBS CARE(HIGH), 69891-KXT/OBS SAME DATE (LOW), 75244-SAL/OBS SAME DATE (MOD), 83767-ZNK/OBS SAME DATE (HIGH) ST[employer] E[employer]OR AND SERVICER Procedure Codes: 56821-62- NON-STRESS TEST TA PERDOMO DO Oct 03, 2024 10:25
== END 2024-10-02 18:20 | disposition home or self-care (01) ==
LOC: LDRP 16:16
PROVIDERS: ADMIT Obstetrics & Gynecology; ATTEND Obstetrics & Gynecology
DX: O62.9 Abnormality of forces of labor, unspecified (principal); Z98.890 Other specified postprocedural states; Z79.899 Other long term (current) drug therapy; Z3A.27 27 weeks gestation of pregnancy
CPT/HCPCS: 59025; 76815; 76817; 81002; 94760; G0378

== ENCOUNTER → 2024-11-22 | Outpatient (CLI) | payer MEDICAID ==
[2024-11-22 10:42] LABS: Basophils # (auto) 0 10 ^3/uL (0-0.2); Basophils % (auto) 0.4 % (0.0-2.0); Eosinophils # (auto) 0.2 10 ^3/uL (0-0.8); Eosinophils % (auto) 1.8 % (0.0-7.0); Hematocrit 36.2 % (36.0-46.0); Hemoglobin 12.3 g/dL (12.2-16.2); Lymphocytes # (auto) 1.8 10 ^3/uL (0.4-5.4); Lymphocytes % (auto) 18.7 % (10.0-50.0); Mean Corpuscular Hemoglobin 28.8 pg (28.0-32.0); Mean Corpuscular Hgb Conc. 33.9 g/dL (32.0-36.0); Mean Corpuscular Volume 84.9 fL (80.0-100.0); Monocytes # (auto) 0.7 10 ^3/uL (0-1.3); Monocytes % (auto) 7.3 % (0.0-12.0); Neutrophils # (auto) 7.1 10 ^3/uL (1.6-8.6); Neutrophils % (auto) 71.8 % (37.0-80.0); Nucleated Red Blood Cells % 0.1 %; Platelet Count (auto) 279 10^3/uL (140-450); Red Blood Cells 4.27 10^6/uL (4.0-5.20); Red Cell Distribution Width 13.4 % (11.8-14.3); White Blood Cell 9.9 10^3/uL (4.4-10.8)
[2024-11-24 00:07] LABS: Chlamydia Trachomatis, NAA Negative (Negative); Neisseria gonorrhoeae, NAA Negative (Negative)
== END | disposition home or self-care (01) ==
LOC: LAB 10:08
PROVIDERS: ATTEND Obstetrics & Gynecology
DX: Z34.83 Encounter for supervision of other normal pregnancy, third trimester (principal); Z72.51 High risk heterosexual behavior; Z3A.29 29 weeks gestation of pregnancy
CPT/HCPCS: 36415; 85025; 86780

== ENCOUNTER 2024-11-27 14:39 | Observation (INO) | payer MEDICAID ==
--- NOTE | 2024-11-28 06:09 | DVHDS2 ---
Discharge Summary Date of Admission November 27, 2024 at 14:39 Date of Discharge: November 27, 2024 Admitting Diagnosis contractions 35 wks Brief Hx & Hospital Course: no PT labor Condition at Discharge: Good Final Diagnosis/Problems List abd pain Discharge Disposition: Home Discharge Instruct/Medications Diet: Regular Activity: No Restrictions, As Tolerated Activity comment: Pelvic rest ; kick counts labor precautions Follow Up/Referral: as scheduled Discharge Statement: "Patient was advised to return to the ER or call 911 if any headaches, dizziness, shortness of breath, chest pain, abdominal pain, bleeding, fevers, or worsening of medical condition. Patient was counseled about treatment plan, medications, possible side effects, patientverbalized understanding. All questions were answered to the best of my ability. This discharge took greater then 30 minutes in planning, reviewing documentation, counseling the patient, and discussing with other team members." ASSESSMENT ASSESSMENT Assessment Visit Coding OBGYN Date of Service: November 27, 2024 Billing Provider: TA PERDOMO DO HEAD WAITER Common Visit Codes: 90473-RBP/OBS SAME DATE (LOW), 74771-RHO/OBS SAME DATE (MOD), 30790-NMV/OBS SAME DATE (HIGH) HEAD WAITER Procedure Codes: 78735-12- NON-STRESS TEST TA PERDOMO DO November 28, 2024 06:09
== END 2024-11-27 15:39 | disposition home or self-care (01) ==
LOC: LDRP 14:39
PROVIDERS: ADMIT Obstetrics & Gynecology; ATTEND Obstetrics & Gynecology
DX: O62.9 Abnormality of forces of labor, unspecified (principal); Z98.890 Other specified postprocedural states; Z79.899 Other long term (current) drug therapy; Z3A.35 35 weeks gestation of pregnancy
CPT/HCPCS: 59025; 81002; 94760; G0378

== ENCOUNTER 2024-12-24 07:09 | Inpatient (IN) | payer MEDICAID ==
[~2024-12-24] VITALS: Ht 157.5 cm; Wt 86.6 kg
--- NOTE | 2024-12-24 07:33 | DVHHP2 ---
OB CC & HPI Date Date of Admission: December 24, 2024 Patient Identification: : 5 Para: 3 EDC: Dec 30, 2024 EGA: 39wks Chief Complaints: Reason for admission: induction of labor Admission Nurse Assessment Rev: No History of Present Complaints pt requested iol ,she has hx of macrosomia and this baby was ihaving inc in weight rapidly Past Medical History Cardiac: No pertinent Hx Pulmonary: No pertinent Hx Central Nervous System: No pertinent Hx GI: No pertinent Hx Hemotology/Oncology: No pertinent Hx Hepatobiliary: No pertinent Hx Psychiatric: No pertinent Hx Musculoskeletal: No pertinent Hx Rheumotologic: No pertinent Hx Infectious Disease: No peritnent Hx ENT: No pertinent Hx Renal/: No pertinent Hx Endocrine: No pertinent Hx Dermatology: No pertinent Hx Past Surgical History: No pertinent Hx OB History OB History Care: Good Care Ultrasounds: Normal mid trimester US Obstetrical Complications: None Medical Complications: None Allergies: Coded Allergies: NO KNOWN ALLERGIES (Unverified , 02/08/17) Home Meds Active Scripts Meclizine HCl (Meclizine 25) 25 Mg Tab, 25 MG PO BID PRN, #30 TAB Prov:DEVIN DAWSON 09/05/24 Reported Medications Vit W/ Ferrous Fumara (PNV PLUS MULTIVI) Plus Tab, 1 OR, TAB 01/02/17 Family & Social History Family/Social History Blood Type: Unknown Rubella: unknown RPR/VDRL: Negative GBS Status: Negative HBsAG: Negative Review of Systems Constitutional: No symptom reported Ears, Nose, & Throat: No symptom reported Eyes: No symptom reported Pulmonary/Respiratory: No symptom reported Cardiovascular: No symptom reported Gastrointestinal: No symptom reported Genitourinary: No symptom reported Musculoskeletal: No symptom reported Skin: No symptom reported Psychiatric: No symptom reported Endocrine: No symptom reported Hemotologic/Lymphatic: No symptom reported OB Admission Exam Physical Exam HEENT: TMs Normal, Fontanelles Normal, Nasal Mucosa Normal, Eyes non-injected, Oropharynx Normal, PERRLA, Moist Membranes, EOMI Heart: Rhythm Normal Lungs: Clear Abdomen: Non tender Extremities: Normal Reflexes: Normal Cervical Dilatation: Fingertip Effacement: 50% Station: -3 Membranes: Intact Heart Rate: 130's Accelerations: Accelerations Present Decelerations: No Decelerations Short Term Variability: Present Mat Puncher Variability: Average (6-25) Contractions on Admission: >10 Minutes Apart Intensity: Mild OB Plan Plan Admitting Diagnosis: induction of labor 39wks Plan: Expectant Management Induction Methd: Misoprostol protocol Other Plan: informed consent obtained risks and complication ofinduction d/w pt . all questions answered Visit Coding OBGYN Date of Service: December 24, 2024 Billing Provider: JANELL MOSS DO SHIPPER/RECEIVER Common Visit Codes: 95377-JAE/OBS SAME DATE (HIGH) SHIPPER/RECEIVER Procedure Codes: 08062-63- NON-STRESS TEST JANELL MOSS DO December 24, 2024 07:33
[2024-12-24] MEDS ORDERED: LIDOCAINE 2%HCL (LOCAL ANESTH.) INJ 20ML MDV IJ PRN (07:45)
[2024-12-24 08:27] LABS: Amphetamine Screen, Urine Neg (NEGATIVE); Barbiturate Scree,Urine Neg (NEGATIVE); Benzodiazephine Screen, Urine Neg (NEGATIVE); Cannabinoid Screen, Urine Neg (NEGATIVE); Cocaine Screen, Urine Neg (NEGATIVE); Opiate Scree,Urine Neg (NEGATIVE); Phencyclidine Screen, Urine Neg (NEGATIVE); Urine Bacteria FEW /hpf (None Seen); Urine Blood Negative /uL (Negative); Urine Color Yellow (Yellow); Urine Mucus FEW (None Seen); Urine Protein, UAD Negative (Negative); Urine Specific Gravity 1.015 (1.001-1.035); Urine Squamous Epithelial Cell FEW /hpf (<5); Urine Urobilinogen Normal (Negative); Urine WBC 2 /HPF (0-5)
[2024-12-24 08:30] LABS: Basophils # (auto) 0 10 ^3/uL (0-0.2); Basophils % (auto) 0.4 % (0.0-2.0); Eosinophils # (auto) 0.2 10 ^3/uL (0-0.8); Eosinophils % (auto) 2.2 % (0.0-7.0); Hematocrit 38.4 % (36.0-46.0); Hemoglobin 12.9 g/dL (12.2-16.2); Lymphocytes # (auto) 2.1 10 ^3/uL (0.4-5.4); Lymphocytes % (auto) 20.2 % (10.0-50.0); Mean Corpuscular Hemoglobin 28.7 pg (28.0-32.0); Mean Corpuscular Hgb Conc. 33.6 g/dL (32.0-36.0); Mean Corpuscular Volume 85.4 fL (80.0-100.0); Monocytes # (auto) 0.4 10 ^3/uL (0-1.3); Monocytes % (auto) 4.2 % (0.0-12.0); Neutrophils # (auto) 7.6 10 ^3/uL (1.6-8.6); Platelet Count (auto) 282 10^3/uL (140-450); Red Cell Distribution Width 13.9 % (11.8-14.3); White Blood Cell 10.5 10^3/uL (4.4-10.8)
[2024-12-24 08:31] LABS: Alanine Aminotransferase 18 U/L (7-40); Albumin 3.9 g/dL (3.2-4.8); Alkaline Phosphatase 149 U/L (46-116); Anion Gap 9 (5-15); Aspartate Aminotransferase 23 U/L (13-40); BUN/Creatinine Ratio 8.9 (10.0-20.0); Bilirubin, Total 0.5 mg/dL (0.2-1.0); Blood Urea Nitrogen < 5 mg/dL (9-23); Calcium 9.8 mg/dL (8.7-10.4); Carbon Dioxide 21 mmol/L (20-31); Chloride 107 mmol/L (98-107); Glucose 146 mg/dL (74-106); INR 0.96 (0.9-1.15); Partial Thromboplastin Time 27.9 SEC (24.5-34.5); Potassium 3.2 mmol/L (3.5-5.1); Prothrombin Time 10.2 sec (9.3-11.8); Sodium 137 mmol/L (136-145); Total Protein 6.3 g/dL (5.7-8.2)
[2024-12-24 08:36] LABS: Urine Clarity Hazy (Clear)
[2024-12-24] MEDS: miSOPROStol 50 MCG per PRE-CUT 1/2 TAB PO PRN (09:49)
[2024-12-24] MEDS: LACTATED RINGER'S 1,000 ML IV SCH (15:45)
--- NOTE | 2024-12-24 21:02 | DVHPN2 ---
CNM Labor Progress Note Date and Time Seen Date Seen: December 24, 2024 Time Seen: 19:40 Subjective Patient reports: No new complaints Objective Vital Signs VSS Monitoring Method Monitoring Method: External Heart Rate Heart Rate Baseline: 130 Heart Rate Variability: Moderate Presence of FHR Accelerations: Yes Presence of FHR Decelerations: No Changes in Trends of Patterns: No Are all 5 Components of the FH: Yes Contractions Contractions Frequency: Other (Q 2-4min) Duration of Contraction: 60 Contractions Intensity: Mild Contractions Resting Tone: Relaxed Membranes Membranes: Intact Vaginal Exam Vag Exam Deferred: Yes Medications Medications - Pitocin: No Medication - Epidural: No Medication - Other Misoprostol Lab Results Lab Results Vital Signs Date Time Temp Pulse Resp B/P (MAP) Pulse Ox O2 Delivery O2 Flow Rate FiO2 12/25/24 14:48 98.6 101 17 110/70 (83) 98.6 12/25/24 14:26 Room Air Current Medications Medications (Trade) Dose Ordered Sig/Erendira Start Time Stop Time Status Last Admin Dose Admin Lactated Ringer's 1,000 ml @ 125 mls/hr Q8H 12/24/24 07:45 12/25/24 13:08 DC 12/25/24 03:51 125 MLS/HR Witch Melita (Tucks) 1 pad PRN PRN 12/24/24 07:45 12/25/24 18:20 1 PAD Sodium Lauryl Sulfate (Phisoderm) 240 ml PRN PRN 12/24/24 07:45 12/25/24 18:20 240 ML Benzocaine (Dermoplast) 1 applic PRN PRN 12/24/24 07:45 12/25/24 18:20 1 APPLIC Misoprostol (Cytotec) 50 mcg Q4HPRN PRN 12/24/24 07:45 12/25/24 02:10 DC 12/24/24 22:36 50 MCG Oxytocin 500 ml @ 999 mls/hr Q31M ONCE 12/24/24 07:45 12/24/24 09:20 DC 12/25/24 12:53 999 MLS/HR Oxytocin 500 ml @ 125 mls/hr Q4H ONCE 12/24/24 08:15 12/24/24 12:14 DC 12/25/24 12:53 125 MLS/HR Naloxone HCl (Narcan) 0.2 mg PRN ONCE 12/25/24 02:15 12/25/24 02:16 DC Naloxone HCl (Narcan) 0.2 mg PRN ONCE 12/25/24 02:15 12/25/24 02:24 DC Ephedrine Sulfate (ePHEDrine SULFATE) 10 mg PRN ONCE 12/25/24 02:15 12/25/24 02:24 DC Fentanyl Citrate 100 mcg ONCE ONCE 12/25/24 02:15 12/25/24 02:24 DC 12/25/24 03:50 100 MCG Naloxone HCl (Narcan) 0.2 mg PRN ONCE 12/25/24 03:45 12/25/24 03:48 DC Ephedrine Sulfate (ePHEDrine SULFATE) 10 mg PRN ONCE 12/25/24 03:45 12/25/24 03:47 DC Fentanyl Citrate 100 mcg ONCE ONCE 12/25/24 03:45 12/25/24 03:48 DC 12/25/24 03:51 100 MCG Oxytocin 1,000 ml @ 6 ml/hr Q24H 12/25/24 04:00 12/25/24 13:08 DC 12/25/24 04:33 6 ML/HR Ibuprofen (Motrin Tablet) 600 mg Q6HP PRN 12/25/24 13:15 12/25/24 18:19 600 MG Acetaminophen (Tylenol Tablet) 650 mg Q4HP PRN 12/25/24 13:15 Docusate Sodium (Colace Capsule) 200 mg HS 12/25/24 22:00 Laboratory Tests Test 12/24/24 07:55 Range/Units White Blood Count 10.5 4.4-10.8 10^3/uL Red Blood Count 4.50 4.0-5.20 10^6/uL Hemoglobin 12.9 12.2-16.2 g/dL Hematocrit 38.4 36.0-46.0 % Mean Corpuscular Volume 85.4 80.0-100.0 fL Mean Corpuscular Hemoglobin 28.7 28.0-32.0 pg Mean Corpuscular Hemoglobin Concent 33.6 32.0-36.0 g/dL Red Cell Distribution Width 13.9 11.8-14.3 % Platelet Count 282 140-450 10^3/uL Mean Platelet Volume 7.9 6.9-10.8 fL Neutrophils (%) (Auto) 73.0 37.0-80.0 % Lymphocytes (%) (Auto) 20.2 10.0-50.0 % Monocytes (%) (Auto) 4.2 0.0-12.0 % Eosinophils (%) (Auto) 2.2 0.0-7.0 % Basophils (%) (Auto) 0.4 0.0-2.0 % Neutrophils # (Auto) 7.6 1.6-8.6 10 ^3/uL Lymphocytes # (Auto) 2.1 0.4-5.4 10 ^3/uL Monocytes # (Auto) 0.4 0-1.3 10 ^3/uL Eosinophils # (Auto) 0.2 0-0.8 10 ^3/uL Basophils # (Auto) 0 0-0.2 10 ^3/uL Nucleated Red Blood Cells 0.0 % Prothrombin Time 10.2 9.3-11.8 sec Prothrombin Time INR 0.96 0.9-1.15 Activated Partial Thromboplast Time 27.9 24.5-34.5 SEC Urine Color Yellow Yellow Urine Clarity Hazy H Clear Urine pH 6.0 5.0-9.0 Urine Specific [place] 1.015 1.001-1.035 Urine Protein Negative Negative Urine Ketones 2+ H Negative Urine Blood Negative Negative /uL Urine Nitrite Negative Negative Urine Bilirubin Negative Negative Urine Urobilinogen Normal Negative mg/dL Urine Leukocyte Esterase Trace Negative /uL Urine RBC 2 0 - 4 /hpf Urine Microscopic WBC 2 0-5 /HPF Urine Squamous Epithelial Cells Few <5 /hpf Urine Bacteria Few H None Seen /hpf Urine Mucus Few None Seen Urine Glucose Normal Normal mg/dL Sodium Level 137 136-145 mmol/L Potassium Level 3.2 L 3.5-5.1 mmol/L Chloride Level 107 98-107 mmol/L Carbon Dioxide Level 21 20-31 mmol/L Anion Gap 9 5-15 Blood Urea Nitrogen < 5 L 9-23 mg/dL Creatinine 0.56 0.550-1.02 mg/dL Glomerular Filtration Rate Calc 126 >90 mL/min BUN/Creatinine Ratio 8.9 L 10.0-20.0 Serum Glucose 146 H 74-106 mg/dL Calcium Level 9.8 8.7-10.4 mg/dL Total Bilirubin 0.5 0.2-1.0 mg/dL Aspartate Amino Transferase (AST) 23 13-40 U/L Alanine Aminotransferase (ALT) 18 7-40 U/L Alkaline Phosphatase 149 H 46-116 U/L Total Protein 6.3 5.7-8.2 g/dL Albumin 3.9 3.2-4.8 g/dL Urine Opiates Screen Neg NEGATIVE Urine Fentanyl Screen Neg NEGATIVE Urine Barbiturates Screen Neg NEGATIVE Urine Phencyclidine Screen Neg NEGATIVE Urine Amphetamines Screen Neg NEGATIVE Urine Benzodiazepines Screen Neg NEGATIVE Urine Cocaine Screen Neg NEGATIVE Urine Cannabinoids Screen Neg NEGATIVE Treponema pallidum Antibody Non-reactive Negative Hepatitis C Antibody Negative Negative Assessment Assessment IUP at 39w 1d IOL for Macrosomia Plan Plan Continue current management plan EFM per protocol Intra uterine resuscitation PRN Labor analgesia PRN Encourage ambulation Supportive care Plan discussed with: Patient, Other (Patient's mother, sister & sister - in - law) Visit Coding OBGYN Date of Service: December 24, 2024 Billing Provider: RIVERA FIGUEROA CNM STEAMSHIP AGENT Common Visit Codes: [id number] INP/OBS CARE(HIGH) RIVERA FIGUEROA CNM December 24, 2024 21:02
--- NOTE | 2024-12-24 21:11 | DVH ---
OB ULTRASOUND COMPLETE: HISTORY: EFW TECHNIQUE: Multiple real-time grayscale images of the gravid uterus with duplex Doppler color flow an d M-mode spectral analysis. FINDINGS: IUP single live fetus at 39 weeks 4 days average ultrasound age (AUA) based on composite averages of the BPD, head circumference, abdominal circumference and femur length Age based on (early ultrasound) : None MEASUREMENTS: BPD: 9.6 cm GA: 39 w 1 d HC: 34.23 cm GA: 39 w 3 d AC: 36.37 cm GA: 40 w 2 d FL: 7.67 cm GA: 39 w 2 d HC/AC Ratio: 0.94 Range: 0.89-1.04 Estimated weight 3904 grams; 8 lbs 10 oz, 84.3 percentile. heart rate 129 beats per minute MARIBEL 21.34 cm, MVP 6.85 anatomic survey: Not performed at this time Cephalic Presentation Anterior Grade 2 Placenta without previa or abruption Cervix obscured IMPRESSION: 1. IUP single live fetus at 39 weeks 4 days AUA corresponding to an FELISA of 12/27/2024. 2. FHR: 129 beats per minute
--- NOTE | 2024-12-24 22:27 | DVHPN2 ---
CNM Labor Progress Note Date and Time Seen Date Seen: December 24, 2024 Time Seen: 22:00 Subjective Patient reports: No new complaints Objective Vital Signs VSS Monitoring Method Monitoring Method: External Heart Rate Heart Rate Baseline: 135 Heart Rate Variability: Moderate Presence of FHR Accelerations: Yes Presence of FHR Decelerations: No Changes in Trends of Patterns: No Are all 5 Components of the FH: Yes Contractions Contractions Frequency: Other (Q2-4min) Duration of Contraction: 60 Contractions Intensity: Moderate Contractions Resting Tone: Relaxed Membranes Membranes: Intact Vaginal Exam Vag Exam Deferred: No Vaginal Exam Dilation: 2 Vaginal Exam Effacement: 50 Vaginal Exam Station: -2 Vaginal Exam Presentation: VTX Vaginal Exam Show: None Medications Medications - Pitocin: No Medication - Epidural: No Medication - Other Misoprostol Lab Results Lab Results Vital Signs Date Time Temp Pulse Resp B/P (MAP) Pulse Ox O2 Delivery O2 Flow Rate FiO2 12/25/24 14:48 98.6 101 17 110/70 (83) 98.6 12/25/24 14:26 Room Air Current Medications Medications (Trade) Dose Ordered Sig/Erendira Start Time Stop Time Status Last Admin Dose Admin Lactated Ringer's 1,000 ml @ 125 mls/hr Q8H 12/24/24 07:45 12/25/24 13:08 DC 12/25/24 03:51 125 MLS/HR Graciela Hua (Tucks) 1 pad PRN PRN 12/24/24 07:45 12/25/24 18:20 1 PAD Sodium Lauryl Sulfate (Phisoderm) 240 ml PRN PRN 12/24/24 07:45 12/25/24 18:20 240 ML Benzocaine (Dermoplast) 1 applic PRN PRN 12/24/24 07:45 12/25/24 18:20 1 APPLIC Misoprostol (Cytotec) 50 mcg Q4HPRN PRN 12/24/24 07:45 12/25/24 02:10 DC 12/24/24 22:36 50 MCG Oxytocin 500 ml @ 999 mls/hr Q31M ONCE 12/24/24 07:45 12/24/24 09:20 DC 12/25/24 12:53 999 MLS/HR Oxytocin 500 ml @ 125 mls/hr Q4H ONCE 12/24/24 08:15 12/24/24 12:14 DC 12/25/24 12:53 125 MLS/HR Naloxone HCl (Narcan) 0.2 mg PRN ONCE 12/25/24 02:15 12/25/24 02:16 DC Naloxone HCl (Narcan) 0.2 mg PRN ONCE 12/25/24 02:15 12/25/24 02:24 DC Ephedrine Sulfate (ePHEDrine SULFATE) 10 mg PRN ONCE 12/25/24 02:15 12/25/24 02:24 DC Fentanyl Citrate 100 mcg ONCE ONCE 12/25/24 02:15 12/25/24 02:24 DC 12/25/24 03:50 100 MCG Naloxone HCl (Narcan) 0.2 mg PRN ONCE 12/25/24 03:45 12/25/24 03:48 DC Ephedrine Sulfate (ePHEDrine SULFATE) 10 mg PRN ONCE 12/25/24 03:45 12/25/24 03:47 DC Fentanyl Citrate 100 mcg ONCE ONCE 12/25/24 03:45 12/25/24 03:48 DC 12/25/24 03:51 100 MCG Oxytocin 1,000 ml @ 6 ml/hr Q24H 12/25/24 04:00 12/25/24 13:08 DC 12/25/24 04:33 6 ML/HR Ibuprofen (Motrin Tablet) 600 mg Q6HP PRN 12/25/24 13:15 12/25/24 18:19 600 MG Acetaminophen (Tylenol Tablet) 650 mg Q4HP PRN 12/25/24 13:15 Docusate Sodium (Colace Capsule) 200 mg HS 12/25/24 22:00 Laboratory Tests Test 12/24/24 07:55 Range/Units White Blood Count 10.5 4.4-10.8 10^3/uL Red Blood Count 4.50 4.0-5.20 10^6/uL Hemoglobin 12.9 12.2-16.2 g/dL Hematocrit 38.4 36.0-46.0 % Mean Corpuscular Volume 85.4 80.0-100.0 fL Mean Corpuscular Hemoglobin 28.7 28.0-32.0 pg Mean Corpuscular Hemoglobin Concent 33.6 32.0-36.0 g/dL Red Cell Distribution Width 13.9 11.8-14.3 % Platelet Count 282 140-450 10^3/uL Mean Platelet Volume 7.9 6.9-10.8 fL Neutrophils (%) (Auto) 73.0 37.0-80.0 % Lymphocytes (%) (Auto) 20.2 10.0-50.0 % Monocytes (%) (Auto) 4.2 0.0-12.0 % Eosinophils (%) (Auto) 2.2 0.0-7.0 % Basophils (%) (Auto) 0.4 0.0-2.0 % Neutrophils # (Auto) 7.6 1.6-8.6 10 ^3/uL Lymphocytes # (Auto) 2.1 0.4-5.4 10 ^3/uL Monocytes # (Auto) 0.4 0-1.3 10 ^3/uL Eosinophils # (Auto) 0.2 0-0.8 10 ^3/uL Basophils # (Auto) 0 0-0.2 10 ^3/uL Nucleated Red Blood Cells 0.0 % Prothrombin Time 10.2 9.3-11.8 sec Prothrombin Time INR 0.96 0.9-1.15 Activated Partial Thromboplast Time 27.9 24.5-34.5 SEC Urine Color Yellow Yellow Urine Clarity Hazy H Clear Urine pH 6.0 5.0-9.0 Urine Specific [place] 1.015 1.001-1.035 Urine Protein Negative Negative Urine Ketones 2+ H Negative Urine Blood Negative Negative /uL Urine Nitrite Negative Negative Urine Bilirubin Negative Negative Urine Urobilinogen Normal Negative mg/dL Urine Leukocyte Esterase Trace Negative /uL Urine RBC 2 0 - 4 /hpf Urine Microscopic WBC 2 0-5 /HPF Urine Squamous Epithelial Cells Few <5 /hpf Urine Bacteria Few H None Seen /hpf Urine Mucus Few None Seen Urine Glucose Normal Normal mg/dL Sodium Level 137 136-145 mmol/L Potassium Level 3.2 L 3.5-5.1 mmol/L Chloride Level 107 98-107 mmol/L Carbon Dioxide Level 21 20-31 mmol/L Anion Gap 9 5-15 Blood Urea Nitrogen < 5 L 9-23 mg/dL Creatinine 0.56 0.550-1.02 mg/dL Glomerular Filtration Rate Calc 126 >90 mL/min BUN/Creatinine Ratio 8.9 L 10.0-20.0 Serum Glucose 146 H 74-106 mg/dL Calcium Level 9.8 8.7-10.4 mg/dL Total Bilirubin 0.5 0.2-1.0 mg/dL Aspartate Amino Transferase (AST) 23 13-40 U/L Alanine Aminotransferase (ALT) 18 7-40 U/L Alkaline Phosphatase 149 H 46-116 U/L Total Protein 6.3 5.7-8.2 g/dL Albumin 3.9 3.2-4.8 g/dL Urine Opiates Screen Neg NEGATIVE Urine Fentanyl Screen Neg NEGATIVE Urine Barbiturates Screen Neg NEGATIVE Urine Phencyclidine Screen Neg NEGATIVE Urine Amphetamines Screen Neg NEGATIVE Urine Benzodiazepines Screen Neg NEGATIVE Urine Cocaine Screen Neg NEGATIVE Urine Cannabinoids Screen Neg NEGATIVE Treponema pallidum Antibody Non-reactive Negative Hepatitis C Antibody Negative Negative Assessment Assessment IUP at 39w 1d IOL for Macrosomia Category I FHR tracing Plan Plan Cervical ripening balloon declined by patient Membrane Sweep Continue current management plan EFM per protocol Intrauterine resuscitation PRN Labor analgesia PRN Supportive Care Anticipate Plan discussed with: Patient (Pt's mother, sister & sister - law) Visit Coding OBGYN Date of Service: December 24, 2024 Billing Provider: RIVERA FIGUEROA CNM POLYSOMNOGRAPHY TECHNOLOGIST Common Visit Codes: [id number] INP/OBS CARE(HIGH) POLYSOMNOGRAPHY TECHNOLOGIST Procedure Codes: 49686-12- NON-STRESS TEST RIVERA FIGUEROA CNM December 24, 2024 22:27
[2024-12-25] MEDS ORDERED: fentaNYL 400mCg/200ml W ROPIVA 200 ML EPI SCH (02:15)
[2024-12-25] MEDS ORDERED: ePHEDrine SULFATE 50 MG/ML AMP IV ONE (02:15)
[2024-12-25] MEDS: ePHEDrine SULFATE 50 MG/ML AMP IV ONE ×2 (02:15→03:45)
[2024-12-25] MEDS: NALOXONE HCL 0.4 MG/ML VIAL IV ONE ×3 (02:15→03:45)
[2024-12-25] MEDS: fentaNYL CITRATE 100 MCG/2 ML VL ONE (02:55)
[2024-12-25] MEDS: ROPIVACAINE HCL 200 ML ONE (03:48)
[2024-12-25] MEDS: fentaNYL CITRATE 100 MCG/2 ML VL IV ONE ×2 (03:50→03:51)
[2024-12-25] MEDS: LACT. RINGERS/OXYTOCIN 20UNITS 1,000 ML IV SCH (04:33)
--- NOTE | 2024-12-25 06:23 | DVHPN2 ---
CNM Labor Progress Note Date and Time Seen Date Seen: Dec 25, 2024 Time Seen: 05:15 Subjective Patient reports: No new complaints Objective Vital Signs VSS Monitoring Method Monitoring Method: External Heart Rate Heart Rate Baseline: 125 Heart Rate Variability: Moderate Presence of FHR Accelerations: Yes Presence of FHR Decelerations: No Changes in Trends of Patterns: No Are all 5 Components of the FH: Yes Contractions Contractions Frequency: Other (Q2-7min) Contractions Intensity: Moderate Contractions Resting Tone: Relaxed Membranes Membranes: Intact Vaginal Exam Vag Exam Deferred: Yes Medications Medications - Pitocin: Yes (Oxytocin at 4mU/ min ) Medication - Epidural: Yes Lab Results Lab Results Vital Signs Date Time Temp Pulse Resp B/P (MAP) Pulse Ox O2 Delivery O2 Flow Rate FiO2 12/25/24 14:48 98.6 101 17 110/70 (83) 98.6 12/25/24 14:26 Room Air Current Medications Medications (Trade) Dose Ordered Sig/Erendira Start Time Stop Time Status Last Admin Dose Admin Lactated Ringer's 1,000 ml @ 125 mls/hr Q8H 12/24/24 07:45 12/25/24 13:08 DC 12/25/24 03:51 125 MLS/HR Witch Melita (Tucks) 1 pad PRN PRN 12/24/24 07:45 12/25/24 18:20 1 PAD Sodium Lauryl Sulfate (Phisoderm) 240 ml PRN PRN 12/24/24 07:45 12/25/24 18:20 240 ML Benzocaine (Dermoplast) 1 applic PRN PRN 12/24/24 07:45 12/25/24 18:20 1 APPLIC Misoprostol (Cytotec) 50 mcg Q4HPRN PRN 12/24/24 07:45 12/25/24 02:10 DC 12/24/24 22:36 50 MCG Oxytocin 500 ml @ 999 mls/hr Q31M ONCE 12/24/24 07:45 12/24/24 09:20 DC 12/25/24 12:53 999 MLS/HR Oxytocin 500 ml @ 125 mls/hr Q4H ONCE 12/24/24 08:15 12/24/24 12:14 DC 12/25/24 12:53 125 MLS/HR Naloxone HCl (Narcan) 0.2 mg PRN ONCE 12/25/24 02:15 12/25/24 02:16 DC Naloxone HCl (Narcan) 0.2 mg PRN ONCE 12/25/24 02:15 12/25/24 02:24 DC Ephedrine Sulfate (ePHEDrine SULFATE) 10 mg PRN ONCE 12/25/24 02:15 12/25/24 02:24 DC Fentanyl Citrate 100 mcg ONCE ONCE 12/25/24 02:15 12/25/24 02:24 DC 12/25/24 03:50 100 MCG Naloxone HCl (Narcan) 0.2 mg PRN ONCE 12/25/24 03:45 12/25/24 03:48 DC Ephedrine Sulfate (ePHEDrine SULFATE) 10 mg PRN ONCE 12/25/24 03:45 12/25/24 03:47 DC Fentanyl Citrate 100 mcg ONCE ONCE 12/25/24 03:45 12/25/24 03:48 DC 12/25/24 03:51 100 MCG Oxytocin 1,000 ml @ 6 ml/hr Q24H 12/25/24 04:00 12/25/24 13:08 DC 12/25/24 04:33 6 ML/HR Ibuprofen (Motrin Tablet) 600 mg Q6HP PRN 12/25/24 13:15 12/25/24 18:19 600 MG Acetaminophen (Tylenol Tablet) 650 mg Q4HP PRN 12/25/24 13:15 Docusate Sodium (Colace Capsule) 200 mg HS 12/25/24 22:00 Laboratory Tests Test 12/24/24 07:55 Range/Units White Blood Count 10.5 4.4-10.8 10^3/uL Red Blood Count 4.50 4.0-5.20 10^6/uL Hemoglobin 12.9 12.2-16.2 g/dL Hematocrit 38.4 36.0-46.0 % Mean Corpuscular Volume 85.4 80.0-100.0 fL Mean Corpuscular Hemoglobin 28.7 28.0-32.0 pg Mean Corpuscular Hemoglobin Concent 33.6 32.0-36.0 g/dL Red Cell Distribution Width 13.9 11.8-14.3 % Platelet Count 282 140-450 10^3/uL Mean Platelet Volume 7.9 6.9-10.8 fL Neutrophils (%) (Auto) 73.0 37.0-80.0 % Lymphocytes (%) (Auto) 20.2 10.0-50.0 % Monocytes (%) (Auto) 4.2 0.0-12.0 % Eosinophils (%) (Auto) 2.2 0.0-7.0 % Basophils (%) (Auto) 0.4 0.0-2.0 % Neutrophils # (Auto) 7.6 1.6-8.6 10 ^3/uL Lymphocytes # (Auto) 2.1 0.4-5.4 10 ^3/uL Monocytes # (Auto) 0.4 0-1.3 10 ^3/uL Eosinophils # (Auto) 0.2 0-0.8 10 ^3/uL Basophils # (Auto) 0 0-0.2 10 ^3/uL Nucleated Red Blood Cells 0.0 % Prothrombin Time 10.2 9.3-11.8 sec Prothrombin Time INR 0.96 0.9-1.15 Activated Partial Thromboplast Time 27.9 24.5-34.5 SEC Urine Color Yellow Yellow Urine Clarity Hazy H Clear Urine pH 6.0 5.0-9.0 Urine Specific [place] 1.015 1.001-1.035 Urine Protein Negative Negative Urine Ketones 2+ H Negative Urine Blood Negative Negative /uL Urine Nitrite Negative Negative Urine Bilirubin Negative Negative Urine Urobilinogen Normal Negative mg/dL Urine Leukocyte Esterase Trace Negative /uL Urine RBC 2 0 - 4 /hpf Urine Microscopic WBC 2 0-5 /HPF Urine Squamous Epithelial Cells Few <5 /hpf Urine Bacteria Few H None Seen /hpf Urine Mucus Few None Seen Urine Glucose Normal Normal mg/dL Sodium Level 137 136-145 mmol/L Potassium Level 3.2 L 3.5-5.1 mmol/L Chloride Level 107 98-107 mmol/L Carbon Dioxide Level 21 20-31 mmol/L Anion Gap 9 5-15 Blood Urea Nitrogen < 5 L 9-23 mg/dL Creatinine 0.56 0.550-1.02 mg/dL Glomerular Filtration Rate Calc 126 >90 mL/min BUN/Creatinine Ratio 8.9 L 10.0-20.0 Serum Glucose 146 H 74-106 mg/dL Calcium Level 9.8 8.7-10.4 mg/dL Total Bilirubin 0.5 0.2-1.0 mg/dL Aspartate Amino Transferase (AST) 23 13-40 U/L Alanine Aminotransferase (ALT) 18 7-40 U/L Alkaline Phosphatase 149 H 46-116 U/L Total Protein 6.3 5.7-8.2 g/dL Albumin 3.9 3.2-4.8 g/dL Urine Opiates Screen Neg NEGATIVE Urine Fentanyl Screen Neg NEGATIVE Urine Barbiturates Screen Neg NEGATIVE Urine Phencyclidine Screen Neg NEGATIVE Urine Amphetamines Screen Neg NEGATIVE Urine Benzodiazepines Screen Neg NEGATIVE Urine Cocaine Screen Neg NEGATIVE Urine Cannabinoids Screen Neg NEGATIVE Treponema pallidum Antibody Non-reactive Negative Hepatitis C Antibody Negative Negative Consulting with Consulting with: None Assessment Assessment IUP at 39w 2d IOL for Macrosomia Plan Plan Continue current management plan Re-assess in 1-2 hour Consider Amniotomy Continue EFM Intra-uterine resuscitation PRN Frequent position change to facilitate labor Anticipate Plan discussed with: Patient, Other Visit Coding OBGYN Date of Service: Dec 25, 2024 Billing Provider: RIVERA FIGUEROA CNM STEM MOUNTER Common Visit Codes: [id number] INP/OBS CARE(HIGH) STEM MOUNTER Procedure Codes: 45304-48- NON-STRESS TEST RIVERA FIGUEROA CNM Dec 25, 2024 06:23
--- NOTE | 2024-12-25 08:16 | DVHPN2 ---
Chief Complaints Patient reports: No new complaints Nursing reports: No new complaints Objective Vitals Vital Signs Date Time Temp Pulse Resp B/P (MAP) Pulse Ox O2 Delivery O2 Flow Rate FiO2 12/25/24 03:51 119/68 Medications Current Medications Medications (Trade) Dose Ordered Sig/Erendira Route PRN Reason Start Time Stop Time Status Last Admin Fentanyl/ Ropivacaine 200 ml @ 0 mls/hr UD EPI 12/25/24 02:15 12/27/24 02:14 Cancel Oxytocin 1,000 ml @ 6 ml/hr Q24H IV 12/25/24 04:00 12/25/24 04:33 Others ve-4cm/70/-2 Studies Laboratory Tests 12/24/24 07:55 Test 12/24/24 07:55 Range/Units Serum Glucose 146 H 74-106 mg/dL Ass/Plan Assessment iol Plan rec epidural cont with pitocin again risk of macrosomia d/w pt and pt wants to proceed with vag del, and refuses pcs Visit Coding OBGYN Date of Service: Dec 25, 2024 Billing Provider: JANELL MOSS DO SENIOR MECHANICAL PROJECT ENGINEER Common Visit Codes: [id number] INP/OBS CARE (HIGH), [id number] INP/OBS CARE(LOW) SENIOR MECHANICAL PROJECT ENGINEER Procedure Codes: 31006-39- NON-STRESS TEST JANELL MOSS DO Dec 25, 2024 08:16
--- NOTE | 2024-12-25 12:10 | DVHPN2 ---
Chief Complaints Patient reports: No new complaints Nursing reports: No new complaints Objective Vitals Vital Signs Date Time Temp Pulse Resp B/P (MAP) Pulse Ox O2 Delivery O2 Flow Rate FiO2 12/25/24 03:51 119/68 Medications Current Medications Medications (Trade) Dose Ordered Sig/Erendira Route PRN Reason Start Time Stop Time Status Last Admin Fentanyl/ Ropivacaine 200 ml @ 0 mls/hr UD EPI 12/25/24 02:15 12/27/24 02:14 Cancel Oxytocin 1,000 ml @ 6 ml/hr Q24H IV 12/25/24 04:00 12/25/24 04:33 Others ve-10cm/100/0 Studies Laboratory Tests 12/24/24 07:55 Test 12/24/24 07:55 Range/Units Serum Glucose 146 H 74-106 mg/dL Ass/Plan Assessment active labor Plan supportive care trial of pushing Visit Coding OBGYN Date of Service: Dec 25, 2024 Billing Provider: JANELL MOSS DO TURBINATED BONE GRINDER Common Visit Codes: [id number] INP/OBS CARE(HIGH) TURBINATED BONE GRINDER Procedure Codes: 38077-88- NON-STRESS TEST JANELL MOSS DO Dec 25, 2024 12:10
--- NOTE | 2024-12-25 12:32 | LDN2 ---
Labor and Delivery Note Date 12/25/24 Age 29 5 Para 4 AB 1 EDC 6-6 EGA 39wks Diagnosis iol Vaginal Delivery: VTX Vacuum Assisted: No Placenta: Spontaneous Sex: Female Apgars 8-9 Nuchal Cord Transected: No Amniotic Fluid: Clear Anesthesia epidural Episiotomy: No Extension: Yes (1st deg periurethral lac bilat) Repaired with 2-0 chromic EBL 300ml Labs Laboratory Tests 07/15/24 10:05: HIV (1&2) Antibody Negative Blood Bank 12/24/24 07:55: Blood Type O POSITIVE Complications none Conditions satble Comments/Significant Med Rico spec exam no cxal lac Visit Coding OBGYN Date of Service: Dec 25, 2024 Billing Provider: JANELL MOSS DO GREENHOUSE SPECIALIST Common Visit Codes: [id number] INP/OBS CARE(HIGH) GREENHOUSE SPECIALIST Procedure Codes: [id number] DELIVERY ONLY JANELL MOSS DO Dec 25, 2024 12:32
[2024-12-25] MEDS: LACT. RINGERS/OXYTOCIN 20UNITS 500 ML IV ONE ×2 (12:53)
[2024-12-25 14:48] VITALS: BP 110/70; PULSE 101; RESP 17; TEMP 98.6
[2024-12-25] MEDS: IBUPROFEN 600 MG TAB PO PRN (18:19)
[2024-12-25] MEDS: WITCH HAZEL-GLYCERIN PAD TOP PRN (18:20)
[2024-12-25] MEDS: PHISODERM TOP SOLN 240ML BTL TOP PRN (18:20)
[2024-12-25] MEDS: DERMOPLAST 60ML BOTTLE TOP PRN (18:20)
[2024-12-25 18:30] VITALS: BP 109/61; PULSE 99; RESP 18; TEMP 98.1
[2024-12-25] MEDS: ACETAMINOPHEN 325 MG TAB PO PRN (20:04)
[2024-12-25] MEDS: DOCUSATE SOD 100 MG CAP PO SCH (22:24)
[2024-12-25 23:30] VITALS: BP 107/62; PULSE 96; RESP 16; TEMP 98.4
--- NOTE | 2024-12-26 02:05 | DVHPN2 ---
Progress Note Date Seen: Dec 26, 2024 Subjective S: Lochia minimal Tolerating regular diet well. Ambulating and voiding well w/o feeling lightheaded or dizzy. Passing flatus but no BM yet. Breast feeding. Contraceptive plan: undecided Desires and requests to be discharged home today vital signs Vital Sign Date Time Temp Pulse Resp B/P (MAP) Pulse Ox O2 Delivery O2 Flow Rate FiO2 12/25/24 23:30 98.4 96 16 107/62 (77) 98.4 12/25/24 18:30 Room Air Total Intake and Output 12/25/24 12/25/24 12/26/24 15:00 23:00 07:00 Output Total 200 ml 2300 ml Balance -200 ml -2300 ml medications Current Medications Medications Dose Ordered Sig/Erendira Route Start Time Stop Time Status Last Admin Dose Admin Graciela Melita 1 pad PRN PRN TOP 12/24/24 07:45 12/25/24 18:20 1 PAD Sodium Lauryl Sulfate 240 ml PRN PRN TOP 12/24/24 07:45 12/25/24 18:20 240 ML Benzocaine 1 applic PRN PRN TOP 12/24/24 07:45 12/25/24 18:20 1 APPLIC Lidocaine HCl 20 ml ONCE PRN IJ 12/24/24 07:45 Cancel Fentanyl/ Ropivacaine 200 ml @ 0 mls/hr UD EPI 12/25/24 02:15 12/27/24 02:14 Cancel Ibuprofen 600 mg Q6HP PRN PO 12/25/24 13:15 12/25/24 18:19 600 MG Acetaminophen 650 mg Q4HP PRN PO 12/25/24 13:15 12/25/24 20:04 650 MG Docusate Sodium 200 mg HS PO 12/25/24 22:00 12/25/24 22:24 200 MG laboratory and microbiology Laboratory Tests 12/24/24 07:55 Test 12/24/24 07:55 Range/Units Serum Glucose 146 H 74-106 mg/dL Objective O: A&O x3 NAD. Afebrile, VSS Chest: heart and lung sounds normal. Breasts: Nipples intact w/o cracks or soreness Abdomen: normal BS, soft, non-tender, no rebound or guarding, fundus firm @ U, lochia minimal Perineum:- no edema, or erythema, laceration site with sutures intact, edges in good approximation. Extremities: no edema or tenderness Lochia - minimal Assessment/Plan 29 yo now ppd#1 s/p doing well. Blood Type: O Rh: Positive Breast feeding Rubella Immune Pain control with oral medications Bowel regimen: Increase fluid intake and fiber in diet, Laxative PRN PP BCM Plan: Undecided but aware of all available contraceptive options Discharge plan: May discharge home later today if condition remains stable Plan discussed with: Patient, Spouse Visit Coding OBGYN Date of Service: Dec 26, 2024 Billing Provider: RIVERA FIGUEROA CNM BOX ESTIMATOR Common Visit Codes: [id number] INP/OBS CARE(HIGH) RIVERA FIGUEROA CNM Dec 26, 2024 02:04
--- NOTE | 2024-12-26 02:15 | DVHDS2 ---
Discharge Summary Date of Admission December 24, 2024 at 07:09 Date of Discharge: Dec 26, 2024 Admitting Diagnosis IUP at 39w 1d Macrosomia IOL for Macrosomia Labs/Diagnostic Data: Laboratory Results Test 12/24/24 07:55 White Blood Count 10.5 10^3/uL (4.4-10.8) Red Blood Count 4.50 10^6/uL (4.0-5.20) Hemoglobin 12.9 g/dL (12.2-16.2) Hematocrit 38.4 % (36.0-46.0) Mean Corpuscular Volume 85.4 fL (80.0-100.0) Mean Corpuscular Hemoglobin 28.7 pg (28.0-32.0) Mean Corpuscular Hemoglobin Concent 33.6 g/dL (32.0-36.0) Red Cell Distribution Width 13.9 % (11.8-14.3) Platelet Count 282 10^3/uL (140-450) Mean Platelet Volume 7.9 fL (6.9-10.8) Neutrophils (%) (Auto) 73.0 % (37.0-80.0) Lymphocytes (%) (Auto) 20.2 % (10.0-50.0) Monocytes (%) (Auto) 4.2 % (0.0-12.0) Eosinophils (%) (Auto) 2.2 % (0.0-7.0) Basophils (%) (Auto) 0.4 % (0.0-2.0) Neutrophils # (Auto) 7.6 10 ^3/uL (1.6-8.6) Lymphocytes # (Auto) 2.1 10 ^3/uL (0.4-5.4) Monocytes # (Auto) 0.4 10 ^3/uL (0-1.3) Eosinophils # (Auto) 0.2 10 ^3/uL (0-0.8) Basophils # (Auto) 0 10 ^3/uL (0-0.2) Nucleated Red Blood Cells 0.0 % Prothrombin Time 10.2 sec (9.3-11.8) Prothrombin Time INR 0.96 (0.9-1.15) Activated Partial Thromboplast Time 27.9 SEC (24.5-34.5) Urine Color Yellow (Yellow) Urine Clarity Hazy (Clear) Urine pH 6.0 (5.0-9.0) Urine Specific [place] 1.015 (1.001-1.035) Urine Protein Negative (Negative) Urine Ketones 2+ (Negative) Urine Blood Negative /uL (Negative) Urine Nitrite Negative (Negative) Urine Bilirubin Negative (Negative) Urine Urobilinogen Normal mg/dL (Negative) Urine Leukocyte Esterase Trace /uL (Negative) Urine RBC 2 /hpf (0 - 4) Urine Microscopic WBC 2 /HPF (0-5) Urine Squamous Epithelial Cells Few /hpf (<5) Urine Bacteria Few /hpf (None Seen) Urine Mucus Few (None Seen) Urine Glucose Normal mg/dL (Normal) Sodium Level 137 mmol/L (136-145) Potassium Level 3.2 mmol/L (3.5-5.1) Chloride Level 107 mmol/L (98-107) Carbon Dioxide Level 21 mmol/L (20-31) Anion Gap 9 (5-15) Blood Urea Nitrogen < 5 mg/dL (9-23) Creatinine 0.56 mg/dL (0.550-1.02) Glomerular Filtration Rate Calc 126 mL/min (>90) BUN/Creatinine Ratio 8.9 (10.0-20.0) Serum Glucose 146 mg/dL (74-106) Calcium Level 9.8 mg/dL (8.7-10.4) Total Bilirubin 0.5 mg/dL (0.2-1.0) Aspartate Amino Transferase (AST) 23 U/L (13-40) Alanine Aminotransferase (ALT) 18 U/L (7-40) Alkaline Phosphatase 149 U/L (46-116) Total Protein 6.3 g/dL (5.7-8.2) Albumin 3.9 g/dL (3.2-4.8) Urine Opiates Screen Neg (NEGATIVE) Urine Fentanyl Screen Neg (NEGATIVE) Urine Barbiturates Screen Neg (NEGATIVE) Urine Phencyclidine Screen Neg (NEGATIVE) Urine Amphetamines Screen Neg (NEGATIVE) Urine Benzodiazepines Screen Neg (NEGATIVE) Urine Cocaine Screen Neg (NEGATIVE) Urine Cannabinoids Screen Neg (NEGATIVE) Treponema pallidum Antibody Non-reactive (Negative) Hepatitis C Antibody Negative (Negative) Other Laboratory Tests 12/24/24 07:55 Brief Hx & Hospital Course: Admitted on 12/24/24 at 39w 1d EGA for IOL d/t Macrosomia. Induction process started with cervical ripening medication followed by Pitocin augmentation. Patient then had an uneventful labor, got labor epidural for pain relief. She progressed to 2nd stage of labor and had a over a second degree perineal laceration. ( See Delivery Note for details) Normal course; meeting milestones w/o any problem or complications. Operations or Procedures Repair of second degree laceration Condition at Discharge: Good Final Diagnosis/Problems List at Term Discharge Disposition: Home Discharge Instruct/Medications Diet: Regular Diet comment: Routine regular diet rich in fiber, protein, iron and vitamin C with adequate fluid intake Activity: No Restrictions, As Tolerated Activity comment: Unrestricted. Advance as tolerated. No heavy lifting, pushing or straining. Pelvic rest x 6weeks Follow Up/Referral: self care instructions given. emergency signs and symptoms including but not limited to pre-eclampsia precautions and signs of infection, PPH & of PPD reviewed with patient. Follow up with OB Provider in 1 week Medications: Ibuprofen 600mg every 6 hours as needed for pain. Continue Vitamin Discharge Statement: self care instructions given. emergency signs and symptoms including but not limited to pre-eclampsia precautions and signs of infection, PPH & of PPD reviewed with patient. Follow up with OB Provider in 1 week "Patient was advised to return to the ER or call 911 if any headaches, dizziness, shortness of breath, chest pain, abdominal pain, bleeding, fevers, or worsening of medical condition. Patient was counseled about treatment plan, medications, possible side effects, patientverbalized understanding. All questions were answered to the best of my ability. This discharge took greater then 30 minutes in planning, reviewing documentation, counseling the patient, and discussing with other team members." ASSESSMENT ASSESSMENT Hospital Course Admitted on 12/24/24 at 39w 1d EGA for IOL d/t Macrosomia. Induction process started with cervical ripening medication followed by Pitocin augmentation. Patient then had an uneventful labor, got labor epidural for pain relief. She progressed to 2nd stage of labor and had a over a second degree perineal laceration. ( See Delivery Note for details) Normal course; meeting milestones w/o any problem or complications. Assessment at Term Visit Coding OBGYN Date of Service: Dec 26, 2024 Billing Provider: RIVERA FIGUEROA CNM BAFFLE INSTALLER Common Visit Codes: [id number]/OBS DISCH DAY <30MIN RIVERA FIGUEROA [facility] Dec 26, 2024 02:15
[2024-12-26 03:30] VITALS: BP 120/75; PULSE 86; RESP 16; TEMP 98.1; O2SAT 100
[2024-12-26 06:44] VITALS: BP 95/51; PULSE 85; RESP 18; TEMP 98.4
[2024-12-26 10:50] VITALS: BP 99/56; PULSE 77; RESP 16; TEMP 97.3
[2024-12-26 14:30] VITALS: BP 113/67; PULSE 86; RESP 18; TEMP 98.1
[2024-12-26 18:50] VITALS: BP 115/67; PULSE 90; RESP 18; TEMP 98.8; O2SAT 98
[2024-12-26 23:00] VITALS: BP 112/69; PULSE 85; RESP 17; TEMP 99.7; O2SAT 98
[2024-12-27 03:00] VITALS: BP 96/55; PULSE 81; RESP 16; TEMP 98.9; O2SAT 98
[2024-12-27 07:00] VITALS: BP 115/71; PULSE 82; RESP 17; TEMP 99.9
--- NOTE | 2024-12-27 07:28 | DVHDS2 ---
Obstetrics Discharge Summary Obstetrics Discharge Summary Date of Admission: December 24, 2024 Date of Discharge: Dec 27, 2024 Reason For Admission: Induction of Labor Procedures: NST, Ultrasound Intrapartum Procedures: Spontaneous vaginal deliv Procedures: None Operative Complicat: Laceration (PU laceration) Discharge Diagnosis: Term -Delivered (VSS. fundus 1 below U, firm, midline, light lochia. Perineum: stitiched intact, edges well approx, no s/sx of infection) Discharge Information: Activity (as tolerated, nothing in the vagina for 6 weeks), Diet (Routine), Medications (Rx sent), Instructions (Routine), Discharge to (Home), Accompanied by (family), Discarge date (12/27/24) Visit Coding OBGYN Date of Service: Dec 27, 2024 Billing Provider: YAHAIRA ARZATE CNM AIRCRAFT ELECTRICAL SYSTEMS SPECIALIST Common Visit Codes: [id number]-LXB/OBS DISCH DAY <30MIN YAHAIRA ARZATE CNM Dec 27, 2024 07:28
[2024-12-27] MEDS ORDERED: DOCU-94 PO (07:33)
[2024-12-27] MEDS ORDERED: IBUP-1456 PO (07:33)
== END 2024-12-27 09:25 | disposition home or self-care (01) | DRG 560 ==
LOC: LDRP 07:09
PROVIDERS: ADMIT Obstetrics & Gynecology; ATTEND Obstetrics & Gynecology
PROC: 10E0XZZ Delivery of Products of Conception, External Approach (ICD-10-PCS; principal; 2024-12-25)
PROC: 0KQM0ZZ Repair Perineum Muscle, Open Approach (ICD-10-PCS; 2024-12-25)
PROC: 3E0R3BZ Introduction of Anesthetic Agent into Spinal Canal, Percutaneous Approach (ICD-10-PCS; 2024-12-25)
PROC: 00HU33Z Insertion of Infusion Device into Spinal Canal, Percutaneous Approach (ICD-10-PCS; 2024-12-25)
DX: O36.63X0 Maternal care for excessive fetal growth, third trimester, not applicable or unspecified (principal); Z37.0 Single live birth; O70.1 Second degree perineal laceration during delivery; Z3A.39 39 weeks gestation of pregnancy
CPT/HCPCS: 36415; 59025; 59409; 62282; 76805; 80053; 80307; 81001; 85025; 85610; 85730; 86780; 86803; 86850; 86900; 86901; 94760; 96361; 96365; 96366; G0378; J2590